=== PATIENT | female | born 1975 | race Hispanic/Latino ===

== ENCOUNTER 2016-12-16 22:55 | Emergency (ER) | payer MEDICAID, OTHER ==
[~2016-12-16] VITALS: Ht 167.6 cm; Wt 81.8 kg
[~2016-12-16 22:55] MED LIST: ACET50TA PO; AMBI12.52 PO; GLUC500T PO; IBUP80TA PO; SYNT50TA PO
[2016-12-16 22:56] VITALS: BP 108/71
[2016-12-17] MEDS ORDERED: NS 1,000 ML IV ONE (00:15)
[2016-12-17 00:57] LABS: BASO % 0.6 % (0.0-1.0); EOS % 0.3 % (0.0-3.0); LARGE UNSTAINED CELL # 0.1 K/mm3 (0.0-0.4); LARGE UNSTAINED CELL % 2.1 % (0.0-4.0); LYMPH # 0.4 K/mm3 (1.5-4.5); LYMPH % 10.1 % (24.0-44.0); MEAN CORPUSCULAR HEMOGLOBIN 18.3 pg (27.0-33.0); MEAN CORPUSCULAR HGB CONC 28.6 g/dl (32.0-36.5); MEAN CORPUSCULAR VOLUME 64.1 fl (80.0-96.0); MONO # 0.2 K/mm3 (0.0-0.8); MONO % 4.8 % (0.0-5.0); NEUTROPHILS # 3.2 K/mm3 (1.8-7.7); NEUTROPHILS % 82.1 % (36.0-66.0); PLATELET COUNT, AUTOMATED 204 k/mm3 (150-450); RED CELL DISTRIBUTION WIDTH 15.2 % (11.5-14.5); WHITE BLOOD COUNT 3.9 K/mm3 (4.0-10.0)
[2016-12-17 00:58] LABS: ADD MORPHOLOGY? YES
[2016-12-17 01:29] LABS: MICROCYTOSIS 3+
[2016-12-17 01:29] LABS: ALBUMIN 3.8 GM/DL (3.2-5.2); ALKALINE PHOSPHATASE 86 U/L (45-117); ALT/SGPT 61 U/L (12-78); ANION GAP 5 MEQ/L (8-16); AST/SGOT 19 U/L (15-37); BILIRUBIN,DIRECT 0.2 MG/DL (0.0-0.2); BILIRUBIN,TOTAL 0.7 MG/DL (0.2-1.0); BLOOD UREA NITROGEN 7 MG/DL (7-18); CALCIUM LEVEL 8.7 MG/DL (8.5-10.1); CARBON DIOXIDE LEVEL 27 MEQ/L (21-32); CHLORIDE LEVEL 106 MEQ/L (98-107); CREATININE FOR GFR 0.82 MG/DL (0.55-1.02); GLOMERULAR FILTRATION RATE > 60.0 (>60); GLUCOSE, FASTING 91 MG/DL (70-105); POTASSIUM SERUM 3.9 MEQ/L (3.5-5.1); SODIUM LEVEL 138 MEQ/L (136-145); T UPTAKE 33 % (30-39); THYROXINE (T4) 7.5 UG/DL (4.5-12.0)
[2016-12-17 01:30] LABS: HYPOCHROMASIA 2+; OVALOCYTES 1+
[2016-12-17 01:31] LABS: ANISOCYTOSIS 1+
[2016-12-17] MEDS ORDERED: KETOROLAC 30 MG/ML VIAL (J1885) IV ONE (01:45)
[2016-12-17] MEDS ORDERED: FE T325T PO (03:28)
== END 2016-12-17 03:37 | disposition home or self-care (01) ==
LOC: M ED 22:55
DX: D50.9 Iron deficiency anemia, unspecified (principal); M79.7 Fibromyalgia; E11.9 Type 2 diabetes mellitus without complications; E03.9 Hypothyroidism, unspecified; Z79.899 Other long term (current) drug therapy

== ENCOUNTER 2017-04-28 08:53 | Emergency (ER) | payer OTHER ==
[~2017-04-28] VITALS: Ht 170.2 cm; Wt 86.4 kg
[~2017-04-28 08:53] MED LIST changes: +FE T325T PO
[2017-04-28] MEDS ORDERED: VYVA70CA3 (09:07)
[2017-04-28] MEDS ORDERED: MORPHINE 4 MG/ML 1ML SYRINGE IV PRN (09:30)
[2017-04-28 09:32] LABS: BASO % 0.6 % (0.0-1.0); EOS # 0.1 10^3/uL (0.0-0.50); EOS % 1.9 % (0.0-3.0); IMMATURE GRANULOCYTE % 0.6 % (0-0); LYMPH # 0.8 10^3/uL (1.5-4.5); LYMPH % 16.5 % (24.0-44.0); MEAN CORPUSCULAR HEMOGLOBIN 18.5 pg (27.0-33.0); MEAN CORPUSCULAR HGB CONC 28.2 g/dl (32.0-36.5); MEAN CORPUSCULAR VOLUME 65.5 fl (80.0-96.0); MONO # 0.3 10^3/uL (0.0-0.8); MONO % 5.4 % (0.0-5.0); NEUTROPHILS # 3.5 10^3/uL (1.8-7.7); PLATELET COUNT, AUTOMATED 249 10^3/uL (150-450); RED CELL DISTRIBUTION WIDTH 16.5 % (11.5-14.5); WHITE BLOOD COUNT 4.6 10^3/uL (4.0-10.0)
[2017-04-28] MEDS ORDERED: ONDANSETRON 4MG/2ML VIAL (J2405) IV ONE (09:45)
[2017-04-28 09:54] LABS: ALBUMIN 3.7 GM/DL (3.2-5.2); ALKALINE PHOSPHATASE 68 U/L (45-117); ALT/SGPT 24 U/L (12-78); ANION GAP 6 MEQ/L (8-16); AST/SGOT 20 U/L (7-37); BILIRUBIN,DIRECT 0.2 MG/DL (0.0-0.2); BILIRUBIN,TOTAL 0.6 MG/DL (0.2-1.0); BLOOD UREA NITROGEN 7 MG/DL (7-18); CALCIUM LEVEL 8.9 MG/DL (8.5-10.1); CARBON DIOXIDE LEVEL 27 MEQ/L (21-32); CHLORIDE LEVEL 106 MEQ/L (98-107); CREATININE FOR GFR 0.66 MG/DL (0.55-1.02); GLOMERULAR FILTRATION RATE > 60.0 (>58); GLUCOSE, FASTING 96 MG/DL (70-105); POTASSIUM SERUM 3.9 MEQ/L (3.5-5.1); SODIUM LEVEL 139 MEQ/L (136-145); TOTAL PROTEIN 7.8 GM/DL (6.4-8.2)
[2017-04-28] MEDS ORDERED: KETOROLAC 30 MG/ML VIAL (J1885) IV ONE (11:30)
[2017-04-28] MEDS ORDERED: VALI5TAB PO (11:34)
[2017-04-28 12:08] VITALS: BP 106/59
== END 2017-04-28 12:15 | disposition home or self-care (01) ==
LOC: M ED 08:53 → EDBD 08:53 → M ED 12:15
DX: M54.9 Dorsalgia, unspecified (principal); M79.1 Myalgia; G89.29 Other chronic pain; E07.9 Disorder of thyroid, unspecified; D64.9 Anemia, unspecified; Z79.84 Long term (current) use of oral hypoglycemic drugs; Z79.899 Other long term (current) drug therapy
CPT/HCPCS: 80048; 80076; 83690; 85025; 93041; 96374; 96375; 99284; J1885; J2405; J3360

== ENCOUNTER 2017-08-14 09:24 | Emergency (ER) | payer OTHER, SELFPAY ==
[2017-08-14] MEDS: KETOROLAC 30 MG/ML VIAL (J1885) IV ×2 (09:54)
[2017-08-14] MEDS: MORPHINE 4 MG/ML 1ML VIAL (J2270) IV (09:55)
[2017-08-14] MEDS: MORPHINE 4 MG/ML 1ML VIAL/SYRINGE (J2270) IV (09:55)
[2017-08-14] MEDS: CYCLOBENZAPRINE 5MG TABLET PO ×2 (12:08)
[2017-08-14] MEDS: PERCOCET 5MG/325MG TAB PO ×2 (12:09)
== END 2017-08-14 14:13 | disposition home or self-care (01) ==
LOC: M ED 09:24
DX: M54.9 Dorsalgia, unspecified (principal); G89.29 Other chronic pain; E03.9 Hypothyroidism, unspecified; E28.2 Polycystic ovarian syndrome; Z79.890 Hormone replacement therapy; Z79.84 Long term (current) use of oral hypoglycemic drugs; Z79.899 Other long term (current) drug therapy; Z87.39 Personal history of other diseases of the musculoskeletal system and connective tissue; Z98.890 Other specified postprocedural states
CPT/HCPCS: J2270

== ENCOUNTER → 2018-05-09 | Outpatient (CLI) | payer OTHER | LOC: M RAD 09:48 | DX: Z36.89 Encounter for other specified antenatal screening (principal); Z3A.08 8 weeks gestation of pregnancy; D25.9 Leiomyoma of uterus, unspecified; O34.11 Maternal care for benign tumor of corpus uteri, first trimester | CPT/HCPCS: 76801 ==

== ENCOUNTER 2018-05-30 18:13 | Emergency (ER) | payer OTHER ==
[~2018-05-30] VITALS: Ht 167.6 cm; Wt 90.9 kg
[~2018-05-30 18:13] MED LIST changes: +CYCL5TAB PO; +PERC5TAB12 PO; +TRAM50TA2 PO; +VALI5TAB PO; +VYVA70CA3
[2018-05-30] MEDS ORDERED: NS 1,000 ML IV ONE (19:00)
[2018-05-30 19:43] LABS: BASO % 0.5 % (0.0-1.0); EOS # 0.2 10^3/uL (0.0-0.50); HEMATOCRIT 39.5 % (36.0-47.0); HEMOGLOBIN 12.4 g/dl (12.0-15.5); LYMPH # 1.6 10^3/uL (1.5-4.5); LYMPH % 20.7 % (24.0-44.0); MEAN CORPUSCULAR HEMOGLOBIN 23.8 pg (27.0-33.0); MEAN CORPUSCULAR HGB CONC 31.4 g/dl (32.0-36.5); MEAN CORPUSCULAR VOLUME 75.7 fl (80.0-96.0); MONO # 0.5 10^3/uL (0.0-0.8); MONO % 6.4 % (0.0-5.0); NEUTROPHILS # 5.4 10^3/uL (1.8-7.7); PLATELET COUNT, AUTOMATED 207 10^3/uL (150-450); RED BLOOD COUNT 5.22 10^6/uL (4.00-5.40); WHITE BLOOD COUNT 7.8 10^3/uL (4.0-10.0)
--- NOTE | 2018-05-30 20:02 | REPVR ---
EXAM: US First Trimester, Transabdominal EXAM DATE/TIME: 05/30/2018 7:29 PM CLINICAL HISTORY: 43 years old, female; Pain; complicated by abdominal or pelvic pain; Lower; First trimester; Gestational age or lmp: 12; ; Additional info: Abdominal cramping HX miscarriage TECHNIQUE: Real-time transabdominal obstetrical ultrasound of the maternal pelvis and a first trimester , less than 14 weeks 0 days, with image documentation. COMPARISON: No relevant prior studies available. FINDINGS: GESTATION: Gestation: Single gestational sac. Single fetus within the gestational sac. Heart rate: heart rate 153 beats per minute. Placenta: Unremarkable. Posterior. No subchorionic bleed. Amniotic fluid: Amniotic and chorionic fluid are normal for gestational age. BIOMETRY: Estimated gestational age: Gestational age based on crown-rump length is 12 weeks 1 day. LMP of 04/06/2018 consistent with a gestational age of 7 weeks 5 days. [place]-Rump length: [place]-rump length measures 5.6 cm. MATERNAL: Uterus: Unremarkable. Cervix: Unremarkable. Right adnexa: Unremarkable. Left adnexa: Unremarkable. Intraperitoneal: No intraperitoneal free fluid. IMPRESSION: Single fetus of crown-rump length 5.6 cm consistent with a gestational age of 12 weeks 1 day. Detailed anatomic survey can be performed at the 19-20 range if clinically desired. Electronically signed by: London Rodriguez On 05/30/2018 20:01:49 PM
[2018-05-30 20:24] LABS: BLOOD UREA NITROGEN 6 MG/DL (7-18); CALCIUM LEVEL 8.9 MG/DL (8.5-10.1); CARBON DIOXIDE LEVEL 24 MEQ/L (21-32); CHLORIDE LEVEL 105 MEQ/L (98-107); CREATININE FOR GFR 0.54 MG/DL (0.55-1.30); GLOMERULAR FILTRATION RATE > 60.0 (>58); GLUCOSE, FASTING 85 MG/DL (70-100); HCG, SERUM QUANTITATIVE 76708 MIU/ML; POTASSIUM SERUM 3.8 MEQ/L (3.5-5.1); SODIUM LEVEL 138 MEQ/L (136-145)
[2018-05-30 21:26] VITALS: BP 116/70
== END 2018-05-30 21:28 | disposition home or self-care (01) ==
LOC: M ED 18:13
DX: O26.891 Other specified pregnancy related conditions, first trimester (principal); R10.2 Pelvic and perineal pain; Z3A.12 12 weeks gestation of pregnancy; O99.281 Endocrine, nutritional and metabolic diseases complicating pregnancy, first trimester; E03.9 Hypothyroidism, unspecified; M79.7 Fibromyalgia; E28.2 Polycystic ovarian syndrome; O99.841 Bariatric surgery status complicating pregnancy, first trimester; Z79.899 Other long term (current) drug therapy; Z79.890 Hormone replacement therapy

== ENCOUNTER 2018-06-12 17:41 | Emergency (ER) | payer OTHER ==
[~2018-06-12] VITALS: Ht 167.6 cm; Wt 90.9 kg
[2018-06-12] MEDS ORDERED: NS 1,000 ML IV ONE (18:00)
[2018-06-12 18:25] LABS: BASO % 0.4 % (0.0-1.0); EOS # 0.1 10^3/uL (0.0-0.50); EOS % 1.5 % (0.0-3.0); HEMATOCRIT 36.6 % (36.0-47.0); HEMOGLOBIN 11.6 g/dl (12.0-15.5); LYMPH # 1.4 10^3/uL (1.5-4.5); LYMPH % 18.1 % (24.0-44.0); MEAN CORPUSCULAR HEMOGLOBIN 24.2 pg (27.0-33.0); MEAN CORPUSCULAR HGB CONC 31.7 g/dl (32.0-36.5); MEAN CORPUSCULAR VOLUME 76.3 fl (80.0-96.0); MONO # 0.5 10^3/uL (0.0-0.8); NEUTROPHILS # 5.4 10^3/uL (1.8-7.7); NEUTROPHILS % 72.1 % (36.0-66.0); PLATELET COUNT, AUTOMATED 184 10^3/uL (150-450); WHITE BLOOD COUNT 7.5 10^3/uL (4.0-10.0)
[2018-06-12 18:48] LABS: ALBUMIN 2.9 GM/DL (3.2-5.2); ALT/SGPT 15 U/L (12-78); AMYLASE 62 U/L (25-115); BILIRUBIN,DIRECT 0.1 MG/DL (0.0-0.2); BILIRUBIN,TOTAL 0.3 MG/DL (0.2-1.0); BLOOD UREA NITROGEN 5 MG/DL (7-18); CALCIUM LEVEL 8.1 MG/DL (8.5-10.1); CARBON DIOXIDE LEVEL 21 MEQ/L (21-32); CHLORIDE LEVEL 107 MEQ/L (98-107); CK-MB VALUE MASS < 1.0 NG/ML (<3.6); CPK CREATINE PHOSPHOKINASE 83 U/L (26-192); CREATININE FOR GFR 0.53 MG/DL (0.55-1.30); ETHYL ALCOHOL (ETHANOL) 0.003 % (0.000-0.010); GLOMERULAR FILTRATION RATE > 60.0 (>58); GLUCOSE, FASTING 79 MG/DL (70-100); LIPASE 135 U/L (73-393); POTASSIUM SERUM 3.5 MEQ/L (3.5-5.1); SODIUM LEVEL 138 MEQ/L (136-145); TOTAL PROTEIN 6.4 GM/DL (6.4-8.2); TROPONIN I < 0.02 NG/ML (< 0.10)
[2018-06-12 18:51] LABS: INR 0.97; PROTHROMBIN TIME 12.9 SECONDS (12.1-14.4)
[2018-06-12 18:52] LABS: PARTIAL THROMBOPLASTIN TIME 26.6 SECONDS (25.4-37.6)
[2018-06-12] MEDS ORDERED: ISOVUE-370 76% 100ML VIAL (Q9967) As Ordered ONE (19:27)
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
[2018-06-12 21:06] VITALS: BP 117/64
[2018-06-12 21:12] LABS: AMPHETAMINES LEVEL URINE NEGATIVE (NEGATIVE); BARBITURATES URINE NEGATIVE (NEGATIVE); BENZODIAZEPINES URINE NEGATIVE (NEGATIVE); CANNABINOIDS URINE NEGATIVE (NEGATIVE); COCAINE METABOLITE URINE NEGATIVE (NEGATIVE); METHADONE URINE NEGATIVE (NEGATIVE); OPIATES URINE NEGATIVE (NEGATIVE); PHENCYCLIDINE URINE NEGATIVE (NEGATIVE)
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
--- NOTE | 2018-06-13 13:25 | ECGEPIP ---
Stationary ECG Study [facility] - ED Test Date: 2018-06-12 Pat Name: MENDY MANNING Department: Room: - Gender: F Inspector Handbag Frames: JUSTA : 1975 Requested By: Wang Curiel Order Number: [id number] Reading MD: Reymundo Aguiar Measurements Intervals [place] Rate: 83 P: 48 SD: 146 QRS: 54 QRSD: 103 T: 18 QT: 384 QTc: 454 Interpretive Statements SINUS RHYTHM NONSPECIFIC T-WAVE ABNORMALITY NO PRIORS FOR COMPARISON Electronically Signed On 06-13-2018 13:24:41 EST by Reymundo Aguiar
== END 2018-06-12 21:40 | disposition home or self-care (01) ==
LOC: M ED 17:41
DX: O9A.211 Injury, poisoning and certain other consequences of external causes complicating pregnancy, first trimester (principal); S30.1XXA Contusion of abdominal wall, initial encounter; V43.52XA Car driver injured in collision with other type car in traffic accident, initial encounter; Y92.410 Unspecified street and highway as the place of occurrence of the external cause; Z3A.13 13 weeks gestation of pregnancy; O99.341 Other mental disorders complicating pregnancy, first trimester; O99.281 Endocrine, nutritional and metabolic diseases complicating pregnancy, first trimester; E07.9 Disorder of thyroid, unspecified; Z79.899 Other long term (current) drug therapy; Z79.84 Long term (current) use of oral hypoglycemic drugs
CPT/HCPCS: 36415; 70450; 71260; 72125; 73060; 73090; 73130; 73552; 73590; 74177; 76705; 76801; 80048; 80076; 80307; 81001; 82150; 82550; 82553; 83605; 83690; 84484; 85025; 85460; 85610; 85730; 86850; 86900; 86901; 93005; 93041; 94760; 99285; G0480; Q9967

== ENCOUNTER 2018-06-21 13:16 | Emergency (ER) | payer OTHER ==
[~2018-06-21] VITALS: Ht 167.6 cm; Wt 90.9 kg
[2018-06-21] MEDS ORDERED: PRENCHW PO (13:24)
[2018-06-21] MEDS ORDERED: IRON325T7 PO (13:24)
[2018-06-21] MEDS ORDERED: diphenhydrAMINE INJ 50MG/ML VIAL (J1200) IV STA (14:28)
[2018-06-21] MEDS ORDERED: METOCLOPRAMIDE INJ 10MG/2ML VIAL (J2765) IV ONE (14:30)
[2018-06-21] MEDS ORDERED: NS 1,000 ML IV ONE (14:30)
[2018-06-21] MEDS ORDERED: REGL10TA6 PO (14:33)
[2018-06-21] MEDS ORDERED: BENA25CA4 PO (14:33)
[2018-06-21] MEDS ORDERED: ACETAMINOPHEN 325 MG TAB PO ONE (14:45)
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
[2018-06-21 16:05] VITALS: BP 94/55
== END 2018-06-21 16:07 | disposition home or self-care (01) ==
LOC: M ED 13:16
DX: O99.89 Other specified diseases and conditions complicating pregnancy, childbirth and the puerperium (principal); R51 Headache; R11.2 Nausea with vomiting, unspecified; S09.90XA Unspecified injury of head, initial encounter; O99.712 Diseases of the skin and subcutaneous tissue complicating pregnancy, second trimester; V43.52XA Car driver injured in collision with other type car in traffic accident, initial encounter; Y92.9 Unspecified place or not applicable; Y99.9 Unspecified external cause status; O99.842 Bariatric surgery status complicating pregnancy, second trimester; O99.282 Endocrine, nutritional and metabolic diseases complicating pregnancy, second trimester; M79.7 Fibromyalgia; Z3A.14 14 weeks gestation of pregnancy; O09.512 Supervision of elderly primigravida, second trimester; Z79.899 Other long term (current) drug therapy
CPT/HCPCS: 70450; 96361; 96374; 96375; 99284; J1200; J2765

== ENCOUNTER 2018-11-30 16:51 | Inpatient (IN) | payer OTHER ==
[~2018-11-30] VITALS: Ht 167.6 cm; Wt 106.0 kg
[~2018-11-30 16:51] MED LIST changes: -ACET50TA PO; +BENA25CA4 PO; +FERR325T82 PO; +MAPA500T17 PO; +PRENCHW PO; +REGL10TA6 PO
[2018-11-30 17:17] VITALS: BP 101/71
[2018-11-30 17:58] LABS: HEMOGLOBIN 8.7 g/dl (12.0-15.5); MEAN CORPUSCULAR HEMOGLOBIN 21.6 pg (27.0-33.0); MEAN CORPUSCULAR VOLUME 74.6 fl (80.0-96.0); PLATELET COUNT, AUTOMATED 125 10^3/uL (150-450); RED BLOOD COUNT 4.02 10^6/uL (4.00-5.40); WHITE BLOOD COUNT 5.4 10^3/uL (4.0-10.0)
[2018-11-30] MEDS ORDERED: miSOPROStol 50 MCG 1/2 TAB (S0191) PO ONE (18:30)
[2018-11-30] MEDS ORDERED: LR 1,000 ML IV ONE (18:30)
[2018-11-30 19:09] VITALS: BP 93/53
[2018-11-30] MEDS ORDERED: metFORMIN (GLUCOPHAGE) 1000 MG TABLET PO ONE (20:00)
[2018-11-30] MEDS ORDERED: TERBUTALINE SULFATE 1 MG/ML VIAL (J3105) As Ordered ONE (20:28)
[2018-11-30] MEDS ORDERED: TERBUTALINE SULFATE 1 MG/ML VIAL (J3105) SC ONE (20:30)
[2018-11-30 20:33] VITALS: BP 110/62
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
[2018-11-30 22:32] VITALS: BP 109/56
[2018-12-01] MEDS ORDERED: hydrOXYzine 10 MG TAB PO ONE (00:15)
[2018-12-01 00:16] VITALS: BP 107/71
[2018-12-01 02:40] VITALS: BP 127/60
[2018-12-01 05:19] VITALS: BP 112/71
[2018-12-01 06:40] VITALS: BP 132/72
--- NOTE | 2018-12-01 15:01 | IPN ---
DATE: 11/30/2018, 2000 hours. I was called regarding this lady's prolonged deceleration after having one oral Cytotec. The duration of the deceleration lasted approximately 20-30 seconds despite not having any contractions but minimal type uterine irritability. The patient was given terbutaline 0.25 mg. The patient was hydrated with an IV bolus and positional change. The baby's heart rate came back and recovered nicely. She did have moderate variability with normal baseline. No contractions and no decelerations were noted. We continued to monitor for over a period of an hour to see if there was any change and though despite she was having some pelvic pressure, she did not have subsequent event. Therefore, we waited the prescribed 4 hours and the patient did not have any further decelerations. Overnight, the patient was monitored intermittently every 2 hours. She was mobilized and never had any recurrence of deceleration.
--- NOTE | 2018-12-01 15:01 | DSES ---
DATE OF ADMISSION: 11/30/2018 DATE OF DISCHARGE: 12/01/2018 This lady was admitted at 37 and 6 weeks of gestation for induction of labor. She is a 43-year-old, 5, para 1. Her issues are that she has anemia, body mass index (BMI) of 32, hypothyroid, AMA, polycystic ovarian syndrome (PCOS), and insomnia. She had been monitored carefully over the course of her care and because of her AMA status, anemia and BMI, she was brought for induction of labor. She had a Cytotec placed because the presenting part was quite high on ultrasound documents to be vertex, but the cervix was posterior, very high, not dilated and after 1 hour of Cytotec orally she had one spontaneous deceleration with no contractions. She was re-hydrated, repositioned and terbutaline times one dose was given and we had no other episodes of the same. Over the next 12 hours, we monitored her with no Pitocin, no Cytotec and the baby had a category 1 strip throughout. This morning we offered her the option of doing a contraction stress test and if positive would end up with a section, if negative we could continue on with induction of labor. The patient was uncomfortable doing a contraction stress test that may lead to section because she does not want to have a section. She preferred to go home. In lieu of that, the option of available to her was to have a biophysical profile (BPP) today and nonstress test. Specific instructions are kick chart minimum of 10 movements 24 hours, six movements 2 hours, ruptured membranes, contractions immediately return, have available 24-hour person to her. She is not to work and she is to have intensive monitoring in our clinic two times per week with an non-stress test (NST) and amniotic fluid index (DAGMAR) and BPP. The compromise was that at 39 weeks, which will be 1 week from today, that she will come in for induction of labor failing having spontaneous labor. At any time during the interval monitoring, there is a suggestion of oligohydramnios and nonreassuring heart, NST of category 2, she will be immediately placed for observation in the unit and progress onto delivery. I explained to the patient with her and father present that there is an increased risk of in AMA patient's especially the closer to 40 weeks that they get and that is the indication that we brought her in at 37 and 6 for induction of labor. The patient expressed understanding of same, still offered the contraction stress test, still declined that. She said she will be compliant in that she will not work, she will monitor her kick chart, she will come in for her monitoring two times per week and if there is any indication that there is stress that she will be immediately admitted for induction of labor as needed. On discharge, the patient's blood pressure was 112/71, respirations were 18, pulse was 96 and she was afebrile at 98.7. We did a biophysical profile again. The vertex is presenting but it is quite high and possibly almost floating activity is noted. She had a four quadrant. DAGMAR of 11.06 with the smallest pocket being 2.53. The limb movement was noted. There was spontaneous respirations and cardiac activity was regular. In summary, she had a biophysical profile of 8/8 with an NST of category 1 being 2/2 giving her total of 10/10. The patient was discharged to followup on Monday for monitoring. Again, all questions were answered. We spent 40 minutes with this patient including examination. edited: 12/03/2018 [id number] michael LANDRUM
== END 2018-12-01 07:00 | disposition home or self-care (01) | DRG 833 ==
LOC: M LDI 16:51
PROVIDERS: ADMIT Obstetrics & Gynecology; ATTEND Obstetrics & Gynecology
PROC: 3E0P7GC Introduction of Other Therapeutic Substance into Female Reproductive, Via Natural or Artificial Opening (ICD-10-PCS; principal; 2018-11-30)
DX: O99.013 Anemia complicating pregnancy, third trimester (principal); O99.283 Endocrine, nutritional and metabolic diseases complicating pregnancy, third trimester; E03.9 Hypothyroidism, unspecified; D64.9 Anemia, unspecified; E28.2 Polycystic ovarian syndrome; O99.843 Bariatric surgery status complicating pregnancy, third trimester; Z3A.37 37 weeks gestation of pregnancy; O61.0 Failed medical induction of labor

== ENCOUNTER 2018-12-08 06:55 | Inpatient (IN) | payer OTHER ==
[2018-12-08] VITALS (19 sets, daily range): BP systolic 79–141; BP diastolic 50–81
[~2018-12-08] VITALS: Ht 167.6 cm; Wt 107.2 kg
[2018-12-08] MEDS ORDERED: LR 1,000 ML IV SCH ×2 (09:15→18:10)
[2018-12-08 09:18] LABS: HEMATOCRIT 31.2 % (36.0-47.0); HEMOGLOBIN 9.1 g/dl (12.0-15.5); MEAN CORPUSCULAR HEMOGLOBIN 21.6 pg (27.0-33.0); MEAN CORPUSCULAR HGB CONC 29.2 g/dl (32.0-36.5); MEAN CORPUSCULAR VOLUME 73.9 fl (80.0-96.0); PLATELET COUNT, AUTOMATED 130 10^3/uL (150-450); RED BLOOD COUNT 4.22 10^6/uL (4.00-5.40); WHITE BLOOD COUNT 6.2 10^3/uL (4.0-10.0)
[2018-12-08] MEDS: LR 1,000 ML IV SCH ×4 (09:58→23:00)
[2018-12-08] MEDS: miSOPROStol 50 MCG 1/2 TAB (S0191) PO PRN ×2 (10:05→14:07)
[2018-12-08] MEDS ORDERED: OXYTOCIN 30 UNITS IN 0.9% NaCl 500ML IV BAG (J2590) As Ordered ONE (18:09)
[2018-12-08] MEDS ORDERED: OXYTOCIN DRIP 30 UNITS in APPROPRIATE DILUENT 1 EA IV SCH (18:15)
--- NOTE | 2018-12-08 20:43 | HPEPDOC ---
Obstetrical History & Physical General Date of Admission Dec 08, 2018 at 06:55 History of Present Illness Pt seen at ~0900 this AM, late entry. 43 y/o at 39+0 for scheduled IOL. No LOF/VB/reg ctx's. Irreg ctx's only. Pos FM. Preg c/b: Hypothyroidism, on synthroid Obesity ADHD no meds AMA PCOS on metformin Anemia Chief Complaint: Induction of labor Care Care: Good Care Dating Final EDC by: 1st trimester (US) Past Medical History Past Obstetrical History : Type of Delivery: Spontaneous Vaginal Del. (x1 in 2013, 7 lb 8 oz, no complications) REPAIR TECH History: Spontaneous (x3, 2 SAB's, 1 ectopic (MTX and D&C)) Past Medical History Medical History ADHD, PCOS, hypothyroid, constipation, migraines Surgical History: Other (gastric sleeve 2007, things underarms abdominoplasty afterwards, D&C X1) Family History Significant Family History: No pertinent family hx Social History Marital Status: Family situation: Spouse/partner home Psychosocial History: No pertinent psych hx * Smoker: non-smoker Alcohol: Denies Drugs: denies Abuse Violence Screening Have you been hit/kicked/slapp: No Have you been sexually assault: No Imunizations Tdap status: declined Influenza Status: declined Allergies Coded Allergies: No Known Allergies (Unverified , 12/08/18) Medications Scheduled Levothyroxine Sodium (Synthroid) 50 Mcg Tab, 50 MCG PO DAILY Metformin Hcl (Glucophage (Metformin)) 250 Mg Halftab, 1,000 MG PO QHS Pnv No.118/Iron Fumarate/FA ( 19 Chewable Tablet) 1 Chw Chw, 1 TAB PO DAILY Physical Examination Physical Examination GENERAL: Alert and oriented times three. Obese ABDOMEN: Gravid and non-tender to touch. Significant abdominoplasty scar with skin edema present, higher risk for skin infection FETUS/Cx: high/anterior/tight 1 cm, TAUS done due to confirm presentation-vtx EXTREMITIES: No edema. Vital Signs/I&O Vital Signs Date Time Temp Pulse Resp B/P (MAP) Pulse Ox O2 Delivery O2 Flow Rate FiO2 12/08/18 07:13 131 116/73 (87) 12/08/18 07:11 97.1 16 Laboratory Data 24H LABS Laboratory Tests 2 12/08/18 06:59: Serology Scanned Report Hepatitis B Testing 12/08/18 09:08: Nucleated Red Blood Cells % (auto) 0.0 CBC/BMP Laboratory Tests 12/08/18 09:08 Red Blood Count 4.22, Mean Corpuscular Volume 73.9 L, Mean Corpuscular Hemoglobin 21.6 L, Mean Corpuscular Hemoglobin Concent 29.2 L, Red Cell Distribution Width 18.6 H Urine Culture: Contaminated Pertinent Laboratoy Data Blood Type: O+ RBC Antibody Screen: Negative HIV: Negative Hepatitis B: Negative Hepatitis C: Unknown Rapid Plasma Reagin: Nonreactive Rubella: Immune Varicella: Immune Chlamydia/Gonorrhea: Negative Group B Streptococcus: Negative Quad Screen Test: Declined Cystic Fibrosis: Negative Glucose Tolerance Test: 79 Anatomy Ultrasound Placenta Location: Posterior Normal Anatomy: Yes Placenta Previa: No Assessment Variability: Moderate Accelerations: Positive Decelerations: None Tocometer Contractions: Yes Frequency: irregular Assessment/Plan Assessment AMA at 39+0. Multiple other minor issues. Not a great candidate for due to prior abdominoplasty, this communicated to pt. Plan Admit and orient Care Services Manager and consent Diet: clears Group B Streptococcus (GBS) neg Labs and intravenous (IV) per unit protocol Counseled on Pitocin and induction of labor (IOL) Plan on starting with PO cytotec Anticipate normal spontaneous delivery () C-S as appropriate SESSIONS,UBALDO Macias MD Dec 08, 2018 20:43
--- NOTE | 2018-12-08 20:50 | IPNPDOC ---
Text Note Date of Service The patient was seen on 12/08/18. NOTE Late note, Pt seen at 1800 PO Cytotec x2 now at 1000, 1400 FHT reassuring, broken at times, also some difficulty with toco Cx 3/75/-2/ant/vtx well applied Start pitocin Sessions VS,Surjit, I+O VS, Surjit I+O Laboratory Tests 12/08/18 09:08 Red Blood Count 4.22, Mean Corpuscular Volume 73.9 L, Mean Corpuscular Hemoglobin 21.6 L, Mean Corpuscular Hemoglobin Concent 29.2 L, Red Cell Distribution Width 18.6 H Vital Signs Date Time Temp Pulse Resp B/P (MAP) Pulse Ox O2 Delivery O2 Flow Rate FiO2 12/08/18 07:13 131 116/73 (87) 12/08/18 07:11 97.1 16 SESSIONS,UBALDO Macias MD Dec 08, 2018 20:50
--- NOTE | 2018-12-08 21:08 | IPNPDOC ---
Text Note Date of Service The patient was seen on 12/08/18. NOTE On only 2 mu/min pitocin had a run of persistent lates, this fixed by the RN a ppropriately, has been off for >1 hr Cx 4/80/-1/very anterior/AROM done with clear fluid, IUPC placed Watch closely, epidural anytime is OK Restart pitocin soon Sessions VS,Surjit, I+O VSSurjit I+O Laboratory Tests 12/08/18 09:08 Red Blood Count 4.22, Mean Corpuscular Volume 73.9 L, Mean Corpuscular Hemoglobin 21.6 L, Mean Corpuscular Hemoglobin Concent 29.2 L, Red Cell Distribution Width 18.6 H Vital Signs Date Time Temp Pulse Resp B/P (MAP) Pulse Ox O2 Delivery O2 Flow Rate FiO2 12/08/18 07:13 131 116/73 (87) 12/08/18 07:11 97.1 16 SESSIONS,UBALDO Macias MD Dec 08, 2018 21:08
[2018-12-08] MEDS ORDERED: FENTANYL 2MCG/ML ROPIVACAINE 0.2% IN 0.9% NACL 100ML IVBAG As Ordered ONE (22:38)
[2018-12-08] MEDS ORDERED: ePHEDrine SULFATE 25 MG/5 ML(5MG/ML) SYRINGE As Ordered ONE (23:34)
[2018-12-09] VITALS (17 sets, daily range): BP systolic 90–128; BP diastolic 54–74
[2018-12-09] MEDS: LR 1,000 ML IV SCH (01:24)
[2018-12-09] MEDS ORDERED: EPIDURAL COMMENT XX SCH (01:30)
[2018-12-09] MEDS ORDERED: ONDANSETRON 4MG/2ML VIAL (J2405) IV PRN (01:30)
[2018-12-09] MEDS ORDERED: ePHEDrine SULFATE 25 MG/5 ML(5MG/ML) SYRINGE IV PRN (01:30)
[2018-12-09] MEDS ORDERED: NALOXONE INJ 0.4 MG/1 ML VIAL (J2310) IV PRN (01:30)
[2018-12-09] MEDS ORDERED: diphenhydrAMINE INJ 50MG/ML VIAL (J1200) IV PRN (01:30)
[2018-12-09] MEDS ORDERED: EPIDURAL/PCA KEYS XX PRN (01:30)
[2018-12-09] MEDS ORDERED: LACTATED RINGER'S 1000 ML IV PRN (01:30)
[2018-12-09] MEDS ORDERED: REFRIGERATOR IV KEYS XX PRN (01:30)
[2018-12-09] MEDS ORDERED: FENTANYL/ROPIVACAINE/NACL BAG 100 ML EPIDURAL SCH (01:30)
--- NOTE | 2018-12-09 02:46 | IPNPDOC ---
Text Note Date of Service The patient was seen on 12/09/18. NOTE Has been making good progress, received her epidural, some late edcels thereaf juanito Lost her IUPC but cont'd worsening pressure, now C/C/+2 Start pushing Sessions VS,Surjit, I+O VS, Surjit I+O Laboratory Tests 12/08/18 09:08 Red Blood Count 4.22, Mean Corpuscular Volume 73.9 L, Mean Corpuscular Hemoglobin 21.6 L, Mean Corpuscular Hemoglobin Concent 29.2 L, Red Cell Distribution Width 18.6 H Vital Signs Date Time Temp Pulse Resp B/P (MAP) Pulse Ox O2 Delivery O2 Flow Rate FiO2 12/08/18 07:13 131 116/73 (87) 12/08/18 07:11 97.1 16 I&O- Last 24 Hours up to 6 AM 12/09/18 06:00 Intake Total 3000 ml Output Total 1000 ml Balance 2000 ml SESSIONS,UBALDO Macias MD Dec 09, 2018 02:46
[2018-12-09] MEDS ORDERED: OXYTOCIN DRIP 30 UNITS in APPROPRIATE DILUENT 1 EA IV SCH (03:44)
[2018-12-09] MEDS ORDERED: DIBUCAINE 1% OINTMENT 30GM TOP PRN (03:45)
[2018-12-09] MEDS ORDERED: METOCLOPRAMIDE INJ 10MG/2ML VIAL (J2765) IV PRN (03:45)
[2018-12-09] MEDS ORDERED: ACETAMINOPHEN TAB 650MG DOSE (2X325MG) PO PRN (03:45)
[2018-12-09] MEDS ORDERED: MEASLES,MUMPS,RUBELLA VACCINE INJ (MMR-II) (90707) SC SCH (03:45)
[2018-12-09] MEDS ORDERED: RHOGAM 300 MCG (1500 IU) INJ (J2790) IM SCH (03:45)
--- NOTE | 2018-12-09 03:55 | DNPDOC ---
[facility] Delivery Note Delivery Note DATE OF DELIVERY: [id number] PREDELIVERY DIAGNOSIS: 39 1/7 weeks' gestation and labor. POST DELIVERY DIAGNOSIS: Delivered. PROCEDURE: Spontaneous vaginal delivery BODY PRESSER: Dr. Cardona ANESTHESIA: epidural ESTIMATED BLOOD LOSS: 200 mL. FINDINGS: 9 pound 0 ounce male infant, Score 9/9 DELIVERY SUMMARY: Great effort, no delay of the vtx or ant/post shoulders. Vigorous to abd. Cord C/C by FOB. Cord blood. Placenta intact, fundus firm, pit going 999. 1st degr ML lac repaired in standard fashion with 3-0 vicryl. Good cosmesis/hemostasis. Sessions MD CARDONA,UBALDO Macias MD Dec 09, 2018 03:55
[2018-12-09] MEDS: PRENATAL VITAMINS CHEWABLE TABLET PO SCH ×2 (08:38→08:53)
[2018-12-09] MEDS: LEVOTHYROXINE 50MCG TABLET (0.05MG) PO SCH (08:38)
[2018-12-09] MEDS: DOCUSATE SODIUM 100 MG CAP PO SCH ×2 (08:39→20:40)
[2018-12-09] MEDS: IBUPROFEN 800 MG TAB PO PRN (11:25)
[2018-12-09] MEDS ORDERED: metFORMIN (GLUCOPHAGE) 1000 MG TABLET PO SCH (18:00)
[2018-12-09] MEDS ORDERED: zolPIDEM TARTRATE 5 MG TAB PO SCH ×3 (21:00→22:00)
[2018-12-10] MEDS: LEVOTHYROXINE 50MCG TABLET (0.05MG) PO SCH ×2 (05:33→08:42)
[2018-12-10] MEDS: IBUPROFEN 800 MG TAB PO PRN (05:34)
[2018-12-10 06:06] VITALS: BP 149/72
--- NOTE | 2018-12-10 07:12 | IPNPDOC ---
Text Note Date of Service The patient was seen on 12/10/18. NOTE PPD1 States feeling well, pain controlled with prescribed meds. Baby bonding and feeding well but in NICU for blood sugar issues. No heavy VB. Lochia slowing. Ambulatory. Tolerating PO without issues. Voiding spont. No CP/LP/SOB. VSSAF NAD A&O LE no C/C/E Ut at U-1, firm a/p: Doing well. Cont routine care. D/C today to boarding. Sessions MD PLASCENCIA,Surjit, I+O VSSurjit I+O Vital Signs Date Time Temp Pulse Resp B/P (MAP) Pulse Ox O2 Delivery O2 Flow Rate FiO2 12/10/18 06:06 97.3 100 18 149/72 (97) I&O- Last 24 Hours up to 6 AM 12/10/18 06:00 Output Total 800 ml Balance -800 ml SESSIONS,UBALDO Macias MD Dec 10, 2018 07:11
--- NOTE | 2018-12-10 07:15 | DS.PDOC ---
Discharge Summary General Date of Admission Dec 08, 2018 at 06:55 Date of Discharge [id number] Discharge Summary ADMITTING DIAGNOSES: IOL for AMA and multiple other issues DISCHARGE DIAGNOSES: Same, HOSPITAL COURSE: Admitted and delivery uncomplicated, . course uncomplicated. DISCHARGE MEDICATIONS: Motrin, Lanolin, Nor DISCHARGE INSTRUCTIONS: Nothing in the vagina for 6 weeks. F/U in OBGYN clinic in 6-8 weeks. Sessions Vital Signs/I&Os Vital Signs Date Time Temp Pulse Resp B/P (MAP) Pulse Ox O2 Delivery O2 Flow Rate FiO2 12/10/18 06:06 97.3 100 18 149/72 (97) I&O- Last 24 Hours up to 6 AM 12/10/18 06:00 Output Total 800 ml Balance -800 ml Discharge Medications Scheduled Levothyroxine Sodium (Synthroid) 50 Mcg Tab, 50 MCG PO DAILY, (Reported) Metformin Hcl (Glucophage (Metformin)) 250 Mg Halftab, 1,000 MG PO QHS, (Reported) Pnv No.118/Iron Fumarate/FA ( 19 Chewable Tablet) 1 Chw Chw, 1 TAB PO DAILY, (Reported) Allergies Coded Allergies: No Known Allergies (Unverified , 12/08/18) SESSIONS,UBALDO Macias MD Dec 10, 2018 07:15
[2018-12-10] MEDS ORDERED: ACET1TAB55 PO (07:16)
[2018-12-10] MEDS ORDERED: IBUP80TA PO (07:16)
[2018-12-10] MEDS ORDERED: AMBI5TAB PO (07:16)
[2018-12-10] MEDS: PRENATAL VITAMINS CHEWABLE TABLET PO SCH (08:42)
[2018-12-10] MEDS: DOCUSATE SODIUM 100 MG CAP PO SCH (09:00)
== END 2018-12-10 16:30 | disposition home or self-care (01) | DRG 807 ==
LOC: M LDI 06:55 → M OBS 12-09 06:21
PROVIDERS: ADMIT Obstetrics & Gynecology; ATTEND Obstetrics & Gynecology
PROC: 10E0XZZ Delivery of Products of Conception, External Approach (ICD-10-PCS; principal; 2018-12-09)
PROC: 0HQ9XZZ Repair Perineum Skin, External Approach (ICD-10-PCS; 2018-12-09)
DX: O99.214 Obesity complicating childbirth (principal); Z37.0 Single live birth; Z3A.39 39 weeks gestation of pregnancy; O70.0 First degree perineal laceration during delivery; O99.284 Endocrine, nutritional and metabolic diseases complicating childbirth; O99.844 Bariatric surgery status complicating childbirth; O99.02 Anemia complicating childbirth

== ENCOUNTER 2019-11-12 09:08 | Emergency (ER) | payer OTHER ==
[~2019-11-12] VITALS: Ht 167.6 cm; Wt 90.8 kg
[~2019-11-12 09:08] MED LIST changes: +ACET1TAB55 PO; +AMBI5TAB PO
[2019-11-12] MEDS ORDERED: VYVA70CA3 PO (09:14)
[2019-11-12 10:13] LABS: BASO % 0.8 % (0.0-1.0); EOS # 0.1 10^3/uL (0.0-0.5); EOS % 1.9 % (0.0-3.0); HEMOGLOBIN 8.9 g/dl (12.0-15.5); LYMPH # 0.6 10^3/uL (1.5-5.0); LYMPH % 15.7 % (24.0-44.0); MEAN CORPUSCULAR HEMOGLOBIN 18.2 pg (27.0-33.0); MEAN CORPUSCULAR VOLUME 67.6 fl (80.0-96.0); MONO # 0.2 10^3/uL (0.0-0.8); MONO % 6.4 % (0.0-5.0); NEUTROPHILS # 2.8 10^3/uL (1.5-8.5); NEUTROPHILS % 74.7 % (36.0-66.0); PLATELET COUNT, AUTOMATED 202 10^3/uL (150-450); RED BLOOD COUNT 4.88 10^6/uL (4.00-5.40); WHITE BLOOD COUNT 3.8 10^3/uL (4.0-10.0)
[2019-11-12 10:38] LABS: ALBUMIN 3.6 GM/DL (3.2-5.2); ALT/SGPT 25 U/L (12-78); BILIRUBIN,DIRECT 0.1 MG/DL (0.0-0.2); BILIRUBIN,TOTAL 0.6 MG/DL (0.2-1.0); BLOOD UREA NITROGEN 8 MG/DL (7-18); CALCIUM LEVEL 8.7 MG/DL (8.5-10.1); CARBON DIOXIDE LEVEL 29 MEQ/L (21-32); CHLORIDE LEVEL 108 MEQ/L (98-107); CREATININE FOR GFR 0.68 MG/DL (0.55-1.30); GLOMERULAR FILTRATION RATE > 60.0 (>58); GLUCOSE, FASTING 90 MG/DL (70-100); LIPASE 90 U/L (73-393); POTASSIUM SERUM 4.3 MEQ/L (3.5-5.1); SODIUM LEVEL 141 MEQ/L (136-145); TOTAL PROTEIN 7.1 GM/DL (6.4-8.2)
[2019-11-12 11:05] LABS: HCG, SERUM QUALITATIVE NEGATIVE (NEGATIVE)
[2019-11-12] MEDS ORDERED: FLOM0.4C39 PO (11:53)
[2019-11-12] MEDS ORDERED: ONDA4TAB6 PO (11:53)
[2019-11-12 11:58] VITALS: BP 131/69
--- NOTE | 2019-11-12 12:08 | REP ---
CT ABDOMEN AND PELVIS WITHOUT CONTRAST: CT abdomen and pelvis performed without oral or IV contrast. Sagittal and coronal reconstruction images are performed. Visualized lung bases are clear. The liver is grossly unremarkable. The gallbladder demonstrates a 2.8 cm gallstone internally. There is no definite gallbladder wall thickening. The spleen, adrenals and pancreas are grossly unremarkable. There is no gross right renal abnormality. There is mild left hydronephrosis caused by a 2 mm stone in the proximal left ureter. There is no abdominal aortic aneurysm. There is no adenopathy. There is no free air or free fluid. There no bowel wall thickening. The appendix is normal. No pelvic mass is seen. Urinary bladder is mildly distended and grossly unremarkable. IMPRESSION: There is a 2 mm calculus in the proximal left ureter causing mild left hydronephrosis. Large gallstone in the gallbladder with no evidence of gallbladder wall thickening. No free air or free fluid. Electronically Signed by Jaleel Tsai MD 11/13/2019 10:20 P
== END 2019-11-12 12:05 | disposition home or self-care (01) ==
LOC: M ED 09:08
DX: N20.1 Calculus of ureter (principal); D50.9 Iron deficiency anemia, unspecified; E03.9 Hypothyroidism, unspecified; E28.2 Polycystic ovarian syndrome; M79.7 Fibromyalgia; F41.9 Anxiety disorder, unspecified; F90.9 Attention-deficit hyperactivity disorder, unspecified type; Z98.84 Bariatric surgery status; Z79.899 Other long term (current) drug therapy; Z79.84 Long term (current) use of oral hypoglycemic drugs

== ENCOUNTER 2021-04-23 18:01 | Inpatient (IN) | payer OTHER ==
[~2021-04-23] VITALS: Ht 167.6 cm; Wt 88.7 kg
[2021-04-23] MEDS: dexameTHASONE 4 MG/ML 1ML VIAL (J1100 PER 1MG) IV SCH (02:29)
[2021-04-23] MEDS: ENOXAPARIN 100MG/1ML SYRINGE (J1650 PER 10MG) SC SCH (02:30)
[~2021-04-23 18:01] MED LIST changes: +B-2100TA PO; +DOCU100C17 PO; +FERR325T3 PO; +FLOM0.4C39 PO; +LEVO50TA5 PO; +ONDA4TAB6 PO; +VITA500C24 PO; +VYVA70CA3 PO
--- OUTSIDE RECORDS SUMMARY | 2021-04-23 18:24 | CCD ---
Author Author [facility] Organization [facility] Address Unknown Phone Unavailable Care Team Providers Care Technician Support Association Name Role Phone NEERAJ, Rashel GALEN PA Unavailable Unavailable LETTIERE, A GALEN PA Unavailable Unavailable LETTIERE, A GALEN PA Unavailable Unavailable LETTIERE, A GALEN PA Unavailable Unavailable LETTIERE, A GALEN PA Unavailable Unavailable LETTIERE, A GALEN PA Unavailable Unavailable LETTIERE, A GALEN PA Unavailable Unavailable LETTIERE, A GALEN PA Unavailable Unavailable LETTIERE, A GALEN PA Unavailable Unavailable LETTIERE, A GALEN PA Unavailable Unavailable LETTIERE, A GALEN PA Unavailable Unavailable LETTIERE, A GALEN PA Unavailable Unavailable LETTIERE, A GALEN PA Unavailable Unavailable LETTIERE, A GALEN PA Unavailable Unavailable LETTIERE, A GALEN PA Unavailable Unavailable LETTIERE, A GALEN PA Unavailable Unavailable LETTIERE, A GALEN PA Unavailable Unavailable LETTIERE, A GALEN PA Unavailable Unavailable LETTIERE, A GALEN PA Unavailable Unavailable LETTIERE, A GALEN PA Unavailable Unavailable LETTIERE, A GALEN PA Unavailable Unavailable LETTIERE, A GALEN PA Unavailable Unavailable LETTIERE, A GALEN PA Unavailable Unavailable LETTIERE, A AGLEN PA Unavailable Unavailable LETTIERE, A GALEN PA Unavailable Unavailable LETTIERE, A GALEN PA Unavailable Unavailable LETTIERE, A GALEN PA Unavailable Unavailable LETTIERE, A GALEN PA Unavailable Unavailable LETTIERE, A GALEN PA Unavailable Unavailable LETTIERE, A GALEN PA Unavailable Unavailable LETTIERE, A GALEN PA Unavailable Unavailable Re-disclosure Warning The records that you are about to access may contain information from federally-assisted alcohol or drug abuse programs. If such information is present, then the following federally mandated warning applies: This information has been disclosed to you from records protected by federal confidentiality rules (42 CFR part 2). The federal rules prohibit you from making any further disclosure of this information unless further disclosure is expressly permitted by the written consent of the person to whom it pertains or as otherwise permitted by 42 CFR part 2. A general authorization for the release of medical or other information is NOT sufficient for this purpose. The Federal rules restrict any use of the information to criminally investigate or prosecute any alcohol or drug abuse patient.The records that you are about to access may contain highly sensitive health information, the redisclosure of which is protected by Article 27-F of the [facility] Public Health law. If you continue you may have access to information: Regarding HIV / AIDS; Provided by facilities licensed or operated by the [facility] Office of Mental Health; or Provided by the [facility] Office for People With Developmental Disabilities. If such information is present, then the following [facility] mandated warning applies: This information has been disclosed to you from confidential records which are protected by state law. State law prohibits you from making any further disclosure of this information without the specific written consent of the person to whom it pertains, or as otherwise permitted by law. Any unauthorized further disclosure in violation of state law may result in a fine or intermediate sentence or both. A general authorization for the release of medical or other information is NOT sufficient authorization for further disc losure. Family History Family Member Name Family Member Gender Family Member Status Date o f Status Description Data Source(s) Unknown Male Problem [facility] ([facility] ) Encounters Encounter Providers Location Date Indications Data Source(s ) Outpatient Attender: GALEN rothman 04/16/2021 11:00:00 AM EST [facility] ([facility], [facility]) Medications Medication Brand Name Start Date Product Form Dose Route Admi nistrative Instructions Pharmacy Instructions Status Indications Reaction Description Data Source(s) Ibuprofen 800 MG Oral Tablet Ibuprofen 04/16/2021 12:00:00 AM EST active [facility] ([facility], [facility]) Cyclobenzaprine hydrochloride 10 MG Oral Tablet Cyclobenzapr ine HCL 04/16/2021 12:00:00 AM EST active M [facility] ([facility], [facility]) Insurance Providers Payer name Policy type / Coverage type Policy ID Covered constitution party ID Covered constitution party's relationship to hartley Policy [place] Plan Information [facility] HUMANA [id number] [facility] [id number] EMEDNY [id number] SP [id number] HUMANA [place] O [id number] S [id number] PROGRESSIVE [place] NO FAULT SP RUST HUMANA [id number] 2 [id number] PROGRESSIVE CO NO FAULT O [id number] S [id number] PROGRESSIVE CO NO FAULT [id number] SP [id number] East Referrals Commercial [id number] Family Dependent [id number] [facility] [place] [facility] O [id number] P [id number] BA [place] O [id number] S [id number] SELF PAY ONLY [id number] SP [id number] [id number] [facility]MANA [facility] [id number] 2 [id number] PGBA [place] [id number] 2 [id number] MEDICAID [id number] SP [id number] PGBA [place] [id number] [id number] [employer]/ AD P [id number] P [id number] Problems, Conditions, and Diagnoses No Information Surgeries/Procedures Procedure Description Date Indications Data Source(s) Therapeutic, Prophylactic Or Diagnostic Injection Subq/Im 04/16/2021 12:00:00 AM EST [facility] ([facility], [facility]) OFFICE OUTPATIENT NEW 30 MINUTES 04/16/2021 12:00:00 A M EST [facility] ([facility], [facility]) Results ID Date Data Source [id number] 04/16/2021 12:00:00 AM EST [facility] Name Value Range Interpretation Code Description Data Shazia rce(s) Supporting Document(s) SARS-CoV2 Rapid Antigen Positive [facility] This lab was reported by [facility]. Procedure Social History Code Duration Value Status Description Data Source(s ) Smoking 04/16/2021 12:00:00 AM EST Patient has never smoked co mpleted Patient has never smoked [facility]) Vital Signs ID Date Data Source UNK Name Value Range Interpretation Code Description Data Source(s) Systolic blood pressure 113 mm[Hg] 113 mm[Hg] [facility] Diastolic blood pressure 82 mm[Hg] 82 mm[Hg] [facility]) Heart rate 101 /min 101 /min [facility] ([facility]) Respiratory rate 12 /min 12 /min [facility] ( [facility]) Oxygen saturation in Arterial blood by Pulse oximetry 99 % 99 % [facility] ([facility]) Body temperature 98.6 [degF] 98.6 [degF] [facility] ([facility]) Body weight 190.00 [lb_av] 190.00 [lb_av] [facility] Body height 66 [in_i] 66 [in_i] [facility] ([facility]) 5'6" Body mass index (BMI) [Ratio] 30.7 kg/m2 30.7 k g/m2 [facility] ([facility])
--- OUTSIDE RECORDS SUMMARY | 2021-04-23 18:24 | CCD | Continuity of Care Document ---
Author Author [facility] [place] Organization Unknown Address [address] [place] [address] [place] [address] Phone [phone] Care Team Providers Care Rim Fire Charger Operator Name Role Phone Stiven Strickland MD AUTM Unavailable [facility] AUTM [phone] Problems Description No Information Available Social History Type Date Description Comments Sex Unknown ETOH Use Denies alcohol use Tobacco Use Start: Unknown The patient has never vaped Tobacco Use Start: Unknown Patient has never smoked Smoking Status Reviewed: 04/16/21 Patient has never smoked Allergies and adverse reactions Description No Known Drug Allergies Medications Active Medications SIG Qnty Indications Ordering Provide r Date Ibuprofen 800mg Tablets take one tablet every 6-8hrs with food 50tabs M54.50 Jaylin Smith JR. 04/16/2021 Cyclobenzaprine HCL 10mg Tablets take one every 8 hours as needed. 30tabs M54.50 Zackary Caldwell JR., M.D. 04/16/2021 Metformin HCL ER (Mod) 500mg Tablets ER 24HR bid Unknown Synthroid 50mcg Tablets Unknown Vyvanse 70mg Capsules Unknown Ambien 10mg Tablets prn Unknown Immunizations Description No Information Available Vital Signs Date Vital Result Comment 04/16/2021 2:58pm BP Systolic 113 mmHg BP Diastolic 82 mmHg Heart Rate 101 /min Respiratory Rate 12 /min O2 % BldC Oximetry 99 % Body Temperature 98.6 F Weight 190.00 lb Height 66 inches 5'6" BMI (Body Mass Index) 30.7 kg/m2 Pain Level 10 Results Description No Information Available Procedures Date Code Description Status 04/16/2021 10336 Office/Outpatient New Low MDM 30 -44 Minutes Completed 04/16/2021 14150 Therapeutic, Prophylactic Or Darling gnostic Injection Subq/Im Completed Medical Devices Description No Information Available Encounters Type Date Location Provider Dx Diagnosis Office Visit 04/16/2021 12:00p Main Office NICOLA Cotter M54 .50 Low back pain, unspecified J06.9 Acute upper respiratory infe ction, unspecified U07.1 Covid-19 Assessments Date Code Description Provider 04/16/2021 M54.50 Low back pain, unspecified Ej NICOLA Loredo 04/16/2021 J06.9 Acute upper respiratory infectio n, unspecified NICOLA Cotter 04/16/2021 U07.1 Covid-19 NICOLA Jacobo Plan of Treatment No Information Available Functional Status Description No Information Available Mental Status Description No Information Available Referrals Refer to Dr Reason for Referral Status Appt Date Adalberto Pickard PA Created [facility] [address] [place] [phone]
--- OUTSIDE RECORDS SUMMARY | 2021-04-23 18:24 | CCD | Continuity of Care Document ---
Author Author [facility]ocasta PICKARD [place] Organization Unknown Address [address] [place] [address] [place] [address] Phone [phone] Care Team Providers Care Senior Linux Unix Engineer Name Role Phone Stiven Strickland MD AUTM Unavailable [facility] AUTM Problems Description No Information Available Social History [...] Available Procedures Date Code Description Status 04/16/2021 80378 Office/Outpatient New Low MDM 30 -44 Minutes Completed Medical Devices Description No Information Available [...] Status Appt Date Adalberto Pickard PA Created [facility] [address] [place] [phone]
--- OUTSIDE RECORDS SUMMARY | 2021-04-23 18:24 | CCD | Continuity of Care Document ---
Author Author [facility] [place] Organization Unknown Address [address] [place] [address] Phone [phone] Problems Description No Information Available Social History Type Date Description Comments Sex Unknown ETOH Use Denies alcohol use Tobacco Use Start: Unknown Patient has never smoked Sun Exposure minimum amount of sun exposure Sun Exposure Has never used tanning bed Sun Exposure Has never experienced blistering from sunburns Sun Exposure Uses > 30 SPF Allergies, Adverse Reactions, Alerts Description No Known Drug Allergies Medications Active Medications SIG Qnty Indications Ordering Provide r Date Synthroid Unknown Metformin HCL Unknown Immunizations Description No Information Available Vital Signs Description No Information Available Results Description No Information Available Procedures Description No Information Available Medical Devices Description No Information Available Encounters Description No Information Available Assessments Date Code Description Provider 02/04/2021 L98.8 Other specified disorders of the skin and subcutaneous tissue Chapis 09/11/2020 L98.8 Other specified disorders of the skin and subcutaneous tissue Gi Gage, F.N.P. 08/28/2020 L98.8 Other specified disorders of the skin and subcutaneous tissue Gi Gage, F.N.P. Plan of Treatment Future Appointment(s):* 02/18/2021 12:30 pm - Cosmetic Consultation at [facility] 09/11/2020 - Gi Gage, F.N.P.* L98.8 Other specified disorders of the skin and subcutaneous tissue* Comments:* Patient tolerated well. Encouraged to follow up in 2 weeks. Verbalizes understanding of Patient Education provided.Call with problems. Functional Status Description No Information Available Mental Status Description No Information Available Referrals Description No Information Available
[2021-04-23] MEDS ORDERED: METF500T13 PO (18:43)
[2021-04-23] MEDS ORDERED: HYDR-4570 PO (18:43)
[2021-04-23] MEDS ORDERED: MAGN400T33 PO (18:43)
[2021-04-23] MEDS ORDERED: CYCL-707 PO (18:43)
[2021-04-23] MEDS ORDERED: IBUP80TA (18:43)
--- OUTSIDE RECORDS SUMMARY | 2021-04-23 19:01 | CCD ---
Author Author [facility] Organization [facility] Address Unknown Phone Unavailable Care Team Providers Care Glue Bone Drier Name Role Phone NEERAJ, Rashel AARON PA Unavailable Unavailable LETTIERE, A GALEN PA [...] is protected by Article 27-F of the [facility] Public Health law. If you continue you may have access to information: Regarding HIV / AIDS; Provided by facilities licensed or operated by the [facility] Office of Mental Health; or Provided by the [facility] Office for People With Developmental Disabilities. If such information is present, then the following [facility] mandated warning applies: This information has [...] law may result in a fine or senior living sentence or both. A general authorization for the release of medical or other information is NOT sufficient authorization for further disc losure. Family History Family Member Name Family Member Gender Family Member Status Date o f Status Description Data Source(s) Unknown Male Problem MEDENT ([facility] ) Encounters Encounter Providers Location Date Indications Data Source(s ) Outpatient Attender: GALEN rothman 04/16/2021 11:00:00 AM EST MEDENT ([facility], [facility]) Medications Medication Brand Name Start Date Product Form Dose Route Admi nistrative Instructions Pharmacy Instructions Status Indications Reaction Description Data Source(s) Ibuprofen 800 MG Oral Tablet Ibuprofen 04/16/2021 12:00:00 AM EST active MEDENT ([facility], [facility]) Cyclobenzaprine hydrochloride 10 MG Oral Tablet Cyclobenzapr ine HCL 04/16/2021 12:00:00 AM EST active M EDENT ([facility], [facility]) Insurance Providers Payer name Policy type / Coverage type Policy ID Covered democrat ID Covered democrat's relationship to hartley Policy Hartley Plan Information [facility] [id number] [facility] [id number] EM[place] [id number] SP [id number] [facility] O [id number] S [id number] PROGRESSIVE CO NO FAULT SP [facility] [id number] [facility] [id number] PROGRESSIVE CO NO FAULT O [id number] S [id number] PROGRESSIVE CO NO FAULT [id number] SP [id number] [facility] Referrals Commercial [id number] Family Dependent [id number] [facility] O [id number] [facility] MAURICE O [id number] S [id number] SELF PAY ONLY [id number] SP [id number] [facility] [id number] 2 [id number] [facility] [id number] 2 [id number] MEDICAID [id number] SP [id number] [facility] [id number] 2 [id number] [facility]/ AD P [id number] P [id number] Problems, Conditions, and Diagnoses No Information Surgeries/Procedures Procedure Description Date Indications Data Source(s) Therapeutic, Prophylactic Or Diagnostic Injection Subq/Im 04/16/2021 12:00:00 AM EST [facility] ([facility], [facility]) OFFICE OUTPATIENT NEW 30 MINUTES 04/16/2021 12:00:00 A M EST MEDENT ([facility], [facility]) Results ID Date Data Source [id number] 04/16/2021 12:00:00 AM EST [facility] Name Value Range Interpretation Code Description Data Shazia rce(s) Supporting Document(s) SARS-CoV2 Rapid Antigen Positive [facility] This lab was reported by [facility]. Procedure Social History Code Duration Value Status Description Data Source(s ) Smoking 04/16/2021 12:00:00 AM EST Patient has never smoked co mpleted Patient has never smoked MEDENT ([facility]) Vital Signs ID Date Data Source UNK Name Value Range Interpretation Code Description Data Source(s) Systolic blood pressure 113 mm[Hg] 113 mm[Hg] M EDENT ([facility]) Diastolic blood pressure 82 mm[Hg] 82 mm[Hg] [facility]) Heart rate 101 /min 101 /min [facility] ([facility]) Respiratory rate 12 /min 12 /min [facility] ( [facility]) Oxygen saturation in Arterial blood by Pulse oximetry 99 % 99 % [facility] ([facility]) Body temperature 98.6 [degF] 98.6 [degF] [facility] ([facility]) Body weight 190.00 [lb_av] 190.00 [lb_av] [facility] ([facility]) Body height 66 [in_i] 66 [in_i] [facility] ([facility]) 5'6" Body mass index (BMI) [Ratio] 30.7 kg/m2 30.7 k g/m2 [facility] ([facility])
[2021-04-23 19:11] LABS: HEMATOCRIT 43.9 % (36.0-47.0); HEMOGLOBIN 14.4 g/dl (12.0-15.5); MEAN CORPUSCULAR HEMOGLOBIN 27.3 pg (27.0-33.0); MEAN CORPUSCULAR HGB CONC 32.8 g/dl (32.0-36.5); MEAN CORPUSCULAR VOLUME 83.1 fl (80.0-96.0); PLATELET COUNT, AUTOMATED 116 10^3/uL (150-450); RED BLOOD COUNT 5.28 10^6/uL (4.00-5.40); WHITE BLOOD COUNT 3.2 10^3/uL (4.0-10.0)
--- NOTE | 2021-04-23 19:12 | REP ---
INDICATION: CHEST PAIN COMPARISON: None. TECHNIQUE: Portable AP view of the chest FINDINGS: Perihilar and lower lobe opacities suggest multifocal pneumonia. Differential diagnosis includes COVID-19 pulmonary disease and correlation is required. No effusion. No pneumothorax. Cardiac silhouette is normal. IMPRESSION: Bilateral opacities concerning for multifocal pneumonia versus COVID-19 pulmonary disease. <Electronically signed by Jesus Busch > 04/23/21 [id number]
[2021-04-23] MEDS ORDERED: NS 1,000 ML IV ONE (19:15)
[2021-04-23] MEDS ORDERED: ACETAMINOPHEN 325 MG TAB PO ONE (19:15)
[2021-04-23 19:28] LABS: PROTHROMBIN TIME 13.6 SECONDS (12.7-14.5)
[2021-04-23 19:29] LABS: PARTIAL THROMBOPLASTIN TIME 34.8 SECONDS (25.9-37.0)
[2021-04-23 19:31] LABS: D-DIMER QUANT 1918.19 ng/ml (<500)
[2021-04-23 19:38] LABS: CK-MB VALUE MASS < 1.0 NG/ML (<3.6); CPK CREATINE PHOSPHOKINASE 161 U/L (26-192); MB/CK RELATIVE INDEX 0.62 (< OR =4); TROPONIN I < 0.02 NG/ML (< 0.10)
[2021-04-23 19:49] LABS: ATYPICAL LYMPH 5 % (0-5); BASOPHILS 1 % (0-1); LYMPHOCYTES 19 % (16-44); MONOCYTES 1 % (0-5); NEUTROPHILS 73 % (28-66)
[2021-04-23 19:50] LABS: PLATELET ESTIMATE DECREASED (NORMAL)
[2021-04-23 19:55] LABS: ALBUMIN 3.1 GM/DL (3.2-5.2); ALT/SGPT 30 U/L (12-78); BILIRUBIN,DIRECT 0.4 MG/DL (0.0-0.2); BLOOD UREA NITROGEN 8 MG/DL (7-18); C REACTIVE PROTEIN QUANTITATIV 8.81 MG/DL (0.00-0.30); CALCIUM LEVEL 8.2 MG/DL (8.5-10.1); CARBON DIOXIDE LEVEL 30 MEQ/L (21-32); CHLORIDE LEVEL 101 MEQ/L (98-107); CREATININE FOR GFR 0.91 MG/DL (0.55-1.30); FERRITIN 152 NG/ML (8-252); GLOMERULAR FILTRATION RATE > 60.0 (>58); GLUCOSE, FASTING 101 MG/DL (70-100); LDH LACTATE DEHYDROGENASE 388 U/L (84-246); LIPASE 583 U/L (73-393); MAGNESIUM LEVEL 2.1 MG/DL (1.8-2.4); NT-PRO BNP 35 PG/ML (<125); POTASSIUM SERUM 3.5 MEQ/L (3.5-5.1); SODIUM LEVEL 138 MEQ/L (136-145); TOTAL PROTEIN 7.4 GM/DL (6.4-8.2)
--- NOTE | 2021-04-23 23:48 | HPEPDOC ---
[facility] Medical History & Physical Date of Admission Apr 23, 2021 Date of Service: Apr 23, 2021 Other Provider [facility] Attending Physician: TORRI MCKEON MD History and Physical TIME OF SERVICE: 1120pm CHIEF COMPLAINT: dyspnea HISTORY OF PRESENT ILLNESS: For the last 3 days, a 46 yr old F has been having dyspnea that is worse with exertion and is associated with cough, chills, sore throat, chest pain, loss of taste and smell along with weakness. She was exposed to someone with COVID last Monday and has not been vaccinated. REVIEW OF SYSTEMS: 10-point review of systems negative except as listed in HPI PAST MEDICAL/ SURGICAL HISTORY: PCOS, Fibromyalgia, ADHD, anxiety, hypothyroidism, class 1 obesity, Gastric Sleeve and liposuction SOCIAL HISTORY: She doesnt smoke. She is a (her of suicide) FAMILY HISTORY: reviewed with patient not relevant to current hospitalization ALLERGIES: Please see below. HOME MEDICATIONS: Please see below. PHYSICAL EXAMINATION: Vital Signs Date Time Temp Pulse Resp B/P (MAP) Pulse Ox O2 Delivery O2 Flow Rate FiO2 04/23/21 18:03 98.1 101 18 112/68 (83) 98 Room Air GENERAL APPEARANCE: well-nourished and developed / NAD HEENT: EOMI / MMM &P CARDIOVASCULAR: RRR/NMRG / no BLE edema LUNGS: CTAB on RA / O2 sats 91% at rest and drop to 89% w exertion ABDOMEN: contour convex MUSCULOSKELETAL: NCAT / COY x 4 INTEGUMENT: not flushed or diaphoretic NEUROLOGICAL: CN 2-12 grossly intact /speech not dysarthric PSYCHIATRIC: A&Ox 3/ able to understand and follow all commands / flat affect LABORATORY DATA: IMAGING: IMPRESSION: Bilateral opacities concerning for multifocal pneumonia versus COVID-19 pulmonary disease. MICROBIOLOGY: + COVID 19 ASSESSMENT: Ms. Quintana is a 46 yr old F w PCOS, Fibromyalgia, ADHD, anxiety, hypothyroidism, & obesity who is admitted for hypoxemia 2/2 COVID 19 PNA. PLAN: 1 Hypoxemia 2/2 COVID-19 PNA Plan: admit to medical floor / continuous pulse ox / supplemental O2 (target O2 sats between 92-95%) / awake proning / contact & air borne precautions / f/u repeat plts (if low indicates bad prognosis), CRP (if high indicates bad prognosis), INR, BMP (40% of pts with COVID develop ARBEN) , INR, D-dimer, PT, PTT, fibrinogen (if patient has DIC indicates bad prognosis), ferritin, LDH, troponins (if elevated will need Echo to r/o viral cardiomyopathy) / VBG to assess the degree of hypoxemia / because this is a viral PNA and she doensnt have a fever I will hold off abx (procal ordered in the ER is pending) / bc the d-dimer is elevated we will start her on medium dose Lovenox with ASA and check BLE US to r/o DVT / IV dexamethasone / Remdesivir / will ask the day time team to call ID or Pulm for to order Baricitinb 2 SIRS (tachycardia 101 w leukopenia) is reactive 2/2 COVID. Lactic acid is wnl. - monitor vitals & f/u blood cx 3 PCOS - hold metformin 4 hypothyroidism - Levothyroxine 5 Fibromyalgia / ADHD/ anxiety - Cyclobenzaprine 6 WALE - hold iron while acutely ill 7 obesity - complicates care / check A1C DVT px w lovenox and ASA Dispo: home after more than 2 midnights stay Home Medications Scheduled Ascorbic Acid (Vitamin C) 500 Mg Capsule, 500 MG PO DAILY Cyclobenzaprine HCl (Cyclobenzaprine HCl) 10 Mg Tablet, 10 MG PO DAILY Docusate Sodium (Docusate Sodium) 100 Mg Capsule, 100 MG PO BID Ferrous Sulfate (Ferrous Sulfate) 325 Mg Tablet.dr, 65 MG PO DAILY Levothyroxine Sodium (Levothyroxine Sodium) 50 Mcg Tablet, 50 MCG PO DAILY Lisdexamfetamine Dimesylate (Vyvanse) 70 Mg Capsule, 70 MG PO QAM Magnesium Oxide (Magnesium Oxide) 400 Mg Tablet, 400 MG PO DAILY Metformin HCl (Metformin HCl) 500 Mg Tablet, 500 MG PO BID Zolpidem Tartrate (Ambien) 10 Mg Tablet, 10 MG PO QHS Scheduled PRN Hydroxyzine HCl (Hydroxyzine HCl) 25 Mg Tablet, 25 MG PO TID PRN for ANXIETY Allergies Coded Allergies: No Known Allergies (Unverified , 12/08/18) A-FIB/CHADSVASC A-FIB History Current/History of A-Fib/PAF?: No Current PO Anticoag Therapy: No TORRI MCKEON MD Apr 23, 2021 23:48
--- OUTSIDE RECORDS SUMMARY | 2021-04-23 23:59 | CCD ---
Author Author [facility] Organization [facility] Address Unknown Phone Unavailable Care Team Providers Care Fire Control Assistant Name Role Phone NEERAJ, Rashel AARON PA [...] is protected by Article 27-F of the [facility] Public Health law. If you continue you may have access to information: Regarding HIV / AIDS; Provided by facilities licensed or operated by the [facility] Office of Mental Health; or Provided by the [facility] Office for People With Developmental Disabilities. If such information is present, then the following [facility] mandated warning applies: This information has [...] law may result in a fine or care home sentence or both. A general authorization for the release of medical or other information is NOT sufficient authorization for further disc losure. Family History Family Member Name Family Member Gender Family Member Status Date o f Status Description Data Source(s) Unknown Male Problem [facility] ([facility] ) Encounters Encounter Providers Location Date Indications Data Source(s ) Outpatient Attender: GALEN rohtman 04/16/2021 11:00:00 AM EST MEDENT ([facility] [place] [facility], [facility]) Medications Medication Brand Name Start Date Product Form Dose Route Admi nistrative Instructions Pharmacy Instructions Status Indications Reaction Description Data Source(s) Ibuprofen 800 MG Oral Tablet Ibuprofen 04/16/2021 12:00:00 AM EST active MED[facility] ([facility], [facility]) Cyclobenzaprine hydrochloride 10 MG Oral Tablet Cyclobenzapr ine HCL 04/16/2021 12:00:00 AM EST active M EDENT ([facility], [facility]) Insurance Providers Payer name Policy type / Coverage type Policy ID Covered green party ID Covered green party's relationship to hartley Policy Hartley Plan Information [facility] [id number] [facility] [id number] EMEDNY [id number] SP [id number] [facility] O [id number] S [id number] PROGRESSIVE CO NO FAULT SP [facility] [id number] [facility] [id number] PROGRESSIVE CO NO FAULT O [id number] S [id number] PROGRESSIVE CO NO FAULT [id number] SP [id number] [facility] Referrals Commercial [id number] Family Dependent [id number] [facility] O [id number] P [id number] [facility] MAURICE O [id number] S [id number] SELF PAY ONLY [id number] SP [id number] [facility] [id number] 2 [id number] [facility] [id number] 2 [id number] MEDICAID [id number] SP [id number] [facility] [id number] 2 [id number] [facility]/ AD P [id number] P [id number] Problems, Conditions, and Diagnoses No Information Surgeries/Procedures Procedure Description Date Indications Data Source(s) Therapeutic, Prophylactic Or Diagnostic Injection Subq/Im 04/16/2021 12:00:00 AM EST [facility] ([facility], [facility]) OFFICE OUTPATIENT NEW 30 MINUTES 04/16/2021 12:00:00 A M EST [facility] ([facility], [facility]) Results ID Date Data Source [id number] 04/16/2021 12:00:00 AM EST [facility] Name Value Range Interpretation Code Description Data Shazia rce(s) Supporting Document(s) SARS-CoV2 Rapid Antigen Positive [facility] This lab was reported by [facility]. Procedure Social History Code Duration Value Status Description Data Source(s ) Smoking 04/16/2021 12:00:00 AM EST Patient has never smoked co mpleted Patient has never smoked [facility] ([facility]) Vital Signs ID Date Data Source UNK Name Value Range Interpretation Code Description Data Source(s) Systolic blood pressure 113 mm[Hg] 113 mm[Hg] M EDENT ([facility]) Diastolic blood pressure 82 mm[Hg] 82 mm[Hg] [facility] ([facility]) Heart rate 101 /min 101 /min [facility] ([facility]) Respiratory rate 12 /min 12 /min [facility] ( [facility]) Oxygen saturation in Arterial blood by Pulse oximetry 99 % 99 % [facility] ([facility]) Body temperature 98.6 [degF] 98.6 [degF] [facility] ([facility]) Body weight 190.00 [lb_av] 190.00 [lb_av] [facility] ([facility]) Body height 66 [in_i] 66 [in_i] [facility] ([facility]) 5'6" Body mass index (BMI) [Ratio] 30.7 kg/m2 30.7 k g/m2 [facility] ([facility])
[2021-04-24] MEDS ORDERED: AMBI10TA PO (00:07)
[2021-04-24] MEDS ORDERED: HOME MED LIST COMPLETE! XX SCH (00:10)
[2021-04-24] MEDS ORDERED: hydrOXYzine 25 MG TAB PO PRN (01:20)
[2021-04-24] MEDS ORDERED: REMDESIVIR 200 MG in NS 250 ML IV ONE (02:00)
[2021-04-24 02:04] LABS: C REACTIVE PROTEIN QUANTITATIV 7.12 MG/DL (0.00-0.30); CREATININE FOR GFR 0.58 MG/DL (0.55-1.30); GLOMERULAR FILTRATION RATE > 60.0 (>58)
[2021-04-24] MEDS ORDERED: SODIUM CHLORIDE 0.9% INJ 10 ML SYR IV ONE (04:00)
--- NOTE | 2021-04-24 04:31 | REPVR ---
PROCEDURE INFORMATION: Exam: US Duplex Lower Extremity Veins, Bilateral Exam date and time: 04/24/21 (3:34am) Age: 46 years old Clinical indication: Bilateral lower leg pain. Possible DVT. TECHNIQUE: Imaging protocol: Real-time duplex ultrasound of the extremities with 2-D phillips scale, color Doppler flow and spectral waveform analysis with image documentation. Complete examination focused on the bilateral lower extremity veins. COMPARISON: CT ABDOMEN PELVIS of 11/12/19 FINDINGS: Right deep veins: Unremarkable. The common femoral, femoral, proximal profunda femoral, popliteal and calf veins are patent without thrombus. Normal Doppler waveforms. Normal compressibility and/or augmentation response. Right superficial veins: Saphenofemoral junction is patent without thrombus. Left deep veins: Unremarkable. The common femoral, femoral, proximal profunda femoral, popliteal and calf veins are patent without thrombus. Normal Doppler waveforms. Normal compressibility and/or augmentation response. Left superficial veins: Saphenofemoral junction is patent without thrombus. Soft tissues: Unremarkable. IMPRESSION: No evidence of deep vein thrombosis (both legs examined). Electronically signed by: Bonita Howard On 04/24/2021 04:31:02 AM
[2021-04-24] MEDS: DOCUSATE SODIUM 100MG CAPSULE PO SCH ×2 (06:00→09:00)
[2021-04-24 06:30] VITALS: BP 112/73
--- NOTE | 2021-04-24 08:11 | ECGEPIP ---
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
[2021-04-24 08:49] LABS: APPEARANCE, URINE CLEAR (CLEAR); BACTERIA, URINE AUTO NEGATIVE (NEGATIVE); BILIRUBIN, URINE AUTO NEGATIVE (NEGATIVE); BLOOD, URINE BLOOD NEGATIVE (NEGATIVE); COLOR, URINE YELLOW (YELLOW); GLUCOSE, URINE (UA) AUTO NEGATIVE (NEGATIVE); KETONE, URINE AUTO 1+ mg/dL (NEGATIVE); LEUKOCYTE ESTERASE, URINE AUTO NEGATIVE (NEGATIVE); MUCUS, URINE SMALL (NEGATIVE); NITRITE, URINE AUTO NEGATIVE (NEGATIVE); PROTEIN, URINE AUTO NEGATIVE (NEGATIVE); RBC, URINE AUTO 2 /HPF (0-3); SPECIFIC GRAVITY URINE AUTO 1.012 (1.002-1.035); SQUAMOUS EPITHELIAL CELL UR AU 2 /HPF (0-6); WBC, URINE AUTO 1 /HPF (0-3)
[2021-04-24] MEDS: CYCLOBENZAPRINE 10MG TABLET PO SCH (09:00)
[2021-04-24] MEDS ORDERED: LISDEXAMFETAMINE 70 MG PO SCH (09:00)
[2021-04-24] MEDS: ENOXAPARIN 100MG/1ML SYRINGE (J1650 PER 10MG) SC SCH ×2 (09:00→22:53)
[2021-04-24] MEDS: LEVOTHYROXINE 50MCG TABLET (0.05MG) PO SCH (09:20)
[2021-04-24] MEDS: ASPIRIN 81 MG CHEW TABLET PEG SCH (09:20)
--- NOTE | 2021-04-24 12:26 | IPNPDOC ---
Subjective Date Seen The patient was seen on 04/24/21. Subjective Chief Complaint/HPI Patient is examined at bedside. She reported dry cough. She denies fever, chills, dyspnea, wheezing, chest pain, chest pressure, abdominal pain, nausea, or vomiting. She reported that she was tested positive for COVID on 04/16/2021. It was noted that patient was saturating on 100% on 2L nasal cannula oxygen. A 10-point review of system negative aside from positive findings in HPI. Objective Physical Examination General Exam: Positive: Alert, Cooperative, No Acute Distress Eye Exam: Positive: Conjunctiva & lids normal; Negative: Sclera icteric ENT Exam: Positive: Atraumatic, Mucous membr. moist/pink Chest Exam: Positive: Normal air movement, Rhonchi; Negative: Rales, Wheezing, Diminished Heart Exam: Positive: Rate Normal, Regular Rhythm, Normal S1, Normal S2; Negative: Murmurs Abdomen Exam: Positive: Normal bowel sounds, Soft; Negative: Tenderness Extremity Exam: Positive: Tenderness (No tenderness in bilateral calves), Other; Negative: Cyanosis Skin Exam: Positive: Nl turgor and temperature; Negative: Rash Neuro Exam: Positive: Normal Speech, Normal Tone Psych Exam: Positive: Mental status NL, Mood NL, Memory Intact, Oriented x 3 Assessment /Plan Assessment Patient is a 46 year old female who reported testing positive for COVID pn eum[place] on 04/16/2021 presented to [facility] due to dyspnea, chest pain, and cough. She was reported to have been saturating at 89% on room air with bilateral opacities concerning in chest x ray. Patient was started on IV Dexamethasone and Remdisivir. #COVID19 infection -Patient reported dry cough, denies chest pain, chest pressure, or dyspnea. -She was noted to be saturating on 100% on 2L nasal cannula this morning and was transitioned to room air; continued to saturate at 95% -Continue awake proning. Continue contact & air borne precautions -Follow up repeat platelets, CRP, INR, BMP, D-dimer, PT, PTT, fibrinogen, ferritin, LDH, troponin -Procalcitonin<0.05, unlikely superimposed bacteria pneumonia -Elevated d-dimer, continue medium dose Lovenox and aspirin. No DVT shown in bilateral lower extremity doppler US -Continue IV dexamethasone and Remdesivir. Will not start Baricitinb at this time as patient has been saturating 100% on 2L oxygen supplementation and will be titrated down oxygen as tolerated #SIRS likely reactive 2/2 COVID, resolved -Tachycardia resolved. Patient had leukopenia on initial CBC, continue to follow up with CBC -Lactic acid within normal range. Blood culture pending # hypothyroidism -Continue home med Levothyroxine #Fibromyalgia -Continue home med Cyclobenzaprine #ADHD -Continue holding home med Vyvanse #Anxiety -Mood appears stable -Continue home med Hydroxyzine PRN #Iron deficiency anemia -Continue to hold iron while acutely ill also ferritin is being trended as an inflammatory marker # PCOS -Continue holding home metformin at this time #Obesity -Complicates care -A1C of 5.0, no diabetes or pre-diabetes DVT prophylaxis: Lovenox SC Disposition: Pending clinical improvement and oxygen down-titration. Anticipate 1 more night of stay Plan/VTE VTE Prophylaxis Ordered?: Yes VS, I&O, 24H, Fishbone Vital Signs/I&O Vital Signs Date Time Temp Pulse Resp B/P (MAP) Pulse Ox O2 Delivery O2 Flow Rate FiO2 04/24/21 06:30 97.6 66 18 112/73 (86) 95 Nasal Cannula 2.0 Laboratory Data 24H LABS Laboratory Tests 2 04/23/21 18:48: Neutrophils (%) (Auto) , Nucleated Red Blood Cells % (auto) 0.0, Neutrophils 73H, Band Neutrophils 1, Lymphocytes (Manual) 19, Monocytes (Manual) 1, Basophils (Manual) 1, Atypical Lymphocytes 5, Platelet Estimate DECREASED, Prothrombin Time 13.6, Prothromb Time International Ratio 1.00, Activated Partial Thromboplast Time 34.8, Fibrinogen 546H, D-Dimer, Quantitative 1918.19H, Anion Gap 7L, Glomerular Filtration Rate > 60.0, Lactic Acid Level 1.6, Calcium Level 8.2L, Magnesium Level 2.1, Ferritin 152, Total Bilirubin 1.0, Direct Bilirubin 0.4H, Aspartate Amino Transf (AST/SGOT) 54H, Alanine Aminotransferase (ALT/SGPT) 30, Alkaline Phosphatase 75, Lactate Dehydrogenase 388H, Total Creatine Kinase 161, Creatine Kinase MB < 1.0, Creatine Kinase MB Relative Index 0.62, Troponin I < 0.02, C-Reactive Protein, Quantitative 8.81H, AD-Ayi-P-Type Natriuretic Peptide 35, Total Protein 7.4, Albumin 3.1L, Albumin/Globulin Ratio 0.7L, Lipase 583H, Thyroid Stimulating Hormone (TSH) 1.310 04/24/21 01:21: Glomerular Filtration Rate > 60.0, Lactate Dehydrogenase 349H, C-Reactive Protein, Quantitative 7.12H 04/24/21 06:00: Estimated Mean Plasma Glucose 97, Hemoglobin A1c 5.0 CBC/BMP Laboratory Tests 04/23/21 18:48 04/24/21 01:21 Microbiology Microbiology 04/24/21 Blood Culture, Received Pending 04/23/21 Respiratory Virus Panel (PCR) ([facility]) - Final, Complete SARS-CoV-2 (COVID 19) 04/23/21 Blood Culture, Received Pending GME ATTESTATION GME ATTESTATION My faculty preceptor for this patient encounter was physically present during the encounter and was fully available. All aspects of the patient interview, examination, medical decision making process, and medical care plan development were reviewed and approved by the faculty preceptor. The faculty preceptor is aware and concurs with the plan as stated in the body of this note and will attest to such by his/her cosignature. ATTENDING NOTE I, Bonnie Hahn, have independently examined this patient and performed my own physical exam, as well as reviewed the documentation and edited where necessary with the resident. For medical students we have performed the physical exam together and discussed medical decision making and I have verified the history. I have discussed in detail with the resident / student the findings and plan of treatment as documented by the resident / student and edited their note. I agree with their findings and treatment plan and have edited their documentation. I will continue to follow the patient during this hospital stay. MASHA LIAO DO Apr 24, 2021 08:32 BONNIE HAHN MD Apr 24, 2021 12:55
[2021-04-24] MEDS ORDERED: DOCUSATE SODIUM 100MG CAPSULE PO PRN (12:30)
[2021-04-24 14:00] VITALS: BP 109/66
[2021-04-24 14:21] LABS: BLOOD UREA NITROGEN 10 MG/DL (7-18); CALCIUM LEVEL 8.6 MG/DL (8.5-10.1); CARBON DIOXIDE LEVEL 27 MEQ/L (21-32); CHLORIDE LEVEL 109 MEQ/L (98-107); CREATININE FOR GFR 0.68 MG/DL (0.55-1.30); GLOMERULAR FILTRATION RATE > 60.0 (>58); GLUCOSE, FASTING 118 MG/DL (70-100); MAGNESIUM LEVEL 2.6 MG/DL (1.8-2.4); SODIUM LEVEL 142 MEQ/L (136-145)
[2021-04-24 20:00] VITALS: BP 106/66; O2SAT 96
[2021-04-24 21:00] VITALS: O2SAT 96
[2021-04-24 22:00] VITALS: O2SAT 94
[2021-04-24] MEDS: dexameTHASONE 4 MG/ML 1ML VIAL (J1100 PER 1MG) IV SCH (22:52)
[2021-04-24 23:00] VITALS: O2SAT 94
[2021-04-24] MEDS ORDERED: hydrOXYzine 50 MG TAB PO PRN (23:55)
[2021-04-24] MEDS ORDERED: traZODone 50 MG TAB PO PRN (23:55)
[2021-04-24] MEDS ORDERED: RAMELTEON 8 MG TAB (ROZEREM) PO PRN (23:55)
[2021-04-25] VITALS (9 sets, daily range): BP systolic 94–110; BP diastolic 52–70; O2SAT 92–96
[2021-04-25] MEDS ORDERED: UNRESOLVED PATIENT OWN MED ORDER XX SCH (00:01)
[2021-04-25] MEDS ORDERED: REMDESIVIR 100 MG in NS 250 ML IV SCH (06:00)
[2021-04-25] MEDS ORDERED: SODIUM CHLORIDE 0.9% INJ 10 ML SYR IV SCH (07:00)
[2021-04-25 07:48] LABS: INR 0.98; PARTIAL THROMBOPLASTIN TIME 33.3 SECONDS (25.9-37.0); PROTHROMBIN TIME 13.4 SECONDS (12.7-14.5)
[2021-04-25 08:02] LABS: CPK CREATINE PHOSPHOKINASE 112 U/L (26-192); TROPONIN I < 0.02 NG/ML (< 0.10)
[2021-04-25 08:11] LABS: ALBUMIN 2.7 GM/DL (3.2-5.2); BILIRUBIN,DIRECT 0.2 MG/DL (0.0-0.2); BILIRUBIN,TOTAL 0.4 MG/DL (0.2-1.0); TOTAL PROTEIN 6.6 GM/DL (6.4-8.2)
[2021-04-25] MEDS ORDERED: PRED10TA2 PO (08:31)
[2021-04-25] MEDS: ASPIRIN 81 MG CHEW TABLET PEG SCH (08:39)
[2021-04-25] MEDS: LEVOTHYROXINE 50MCG TABLET (0.05MG) PO SCH (08:39)
[2021-04-25] MEDS: ENOXAPARIN 100MG/1ML SYRINGE (J1650 PER 10MG) SC SCH (08:40)
[2021-04-25] MEDS: CYCLOBENZAPRINE 10MG TABLET PO SCH (08:42)
[2021-04-25] MEDS ORDERED: INFLUENZA QUADRIVALENT PF VACCINE 0.5ML SYRINGE IM ONE (09:00)
--- NOTE | 2021-04-25 12:33 | DS.PDOC ---
Discharge Summary General Date of Admission Apr 23, 2021 at 23:48 Date of Discharge 04/25/2021 Discharge Summary PROCEDURES PERFORMED DURING STAY: [None]. ADMITTING DIAGNOSES / DISCHARGE DIAGNOSES: COVID19 infection Hypothyroidism Fibromyalgia / Anxiety / ADHD Iron deficiency anemia PCOS Obesity DVT prophylaxis COMPLICATIONS/CHIEF COMPLAINT: Shortness of breath HISTORY OF PRESENT ILLNESS: Patient is a 46-year-old female with a PMHx of Recent Hx of COVID19 (Dx 04/16/2021), Hypothyroidism, Iron deficiency, PCOS, Fibromyalgia / ADHD / Anxiety, Obesity, who presented to the ER with complaints of shortness of breath. In the emergency room, patient was reported to be hypoxic, saturating at 89% on room air. Hospitalist service was called for further evaluation and treatment. Patient was seen and examined at the bedside. Denies any CP, SOB, palpitations, nausea, vomiting, abdominal pain, constipation, diarrhea, or urinary discomfort. Yesterday morning, patient was titrated off oxygen and has remained on room air since that point. HOSPITAL COURSE: COVID19 infection - Currently patient denies any significant shortness breath, chest pain or cough - Patient has required a maximum 2 L nasal cannula and has been tolerating room air. Over the last 24 hours - PCT of 0.05; less likely superimposed bacterial infection - Imaging noted below - Will DC Remdesivir and Dexamethasone; c/w Prednisone taper on discharge Hypothyroidism - c/w Levothyroxine Fibromyalgia / Anxiety / ADHD - c/w Cyclobenzaprine / Hydroxyzine - Will resume Vyvanse on discharge Iron deficiency anemia - Will resume Iron supplementation on discharge PCOS - c/w Metformin on DC Obesity - BMI of 31.6 - Complicating medical care DVT prophylaxis - c/w Lovenox DISCHARGE MEDICATIONS: Please see below. ALLERGIES: Please see below. PHYSICAL EXAMINATION ON DISCHARGE: Vitals (See below) General: Lying in bed, appears comfortable, AAOx3 HEENT: NC, AT CVS: RRR, +S1S2 Lungs: Fair air entry b/l, no wheezing / rales / rhonchi Abdomen: Soft, ND, NT Extremities: - Edema, - Calf tenderness LABORATORY DATA: Please see below. IMAGING: CXR 04/23: Bilateral opacities concerning for multifocal pneumonia versus COVID-19 pulmonary disease. Duplex US 04/23: No evidence of deep vein thrombosis (both legs examined). ACTIVITY: [As tolerated]. DISCHARGE PLAN: Follow-up with primary care provider within the next 7 days Remain compliant with treatment plan and medications Return to the ER if you experience any problems DISPOSITION: Home, Self-Care. DISCHARGE CONDITION: [Stable]. TIME SPENT ON DISCHARGE: 35 minutes. Vital Signs/I&Os Vital Signs Date Time Temp Pulse Resp B/P (MAP) Pulse Ox O2 Delivery O2 Flow Rate FiO2 04/25/21 07:00 95 Room Air 04/25/21 05:19 96.1 73 16 110/70 (83) 04/24/21 06:30 2.0 I&O- Last 24 Hours up to 6 AM 04/25/21 06:00 Intake Total 1880 ml Output Total 500 ml Balance 1380 ml Laboratory Data Labs 24H Laboratory Tests 2 04/24/21 13:42: Anion Gap 6L, Glomerular Filtration Rate > 60.0, Calcium Level 8.6, Magnesium Level 2.6H 04/25/21 07:05: Prothrombin Time 13.4, Prothromb Time International Ratio 0.98, Activated Part ial Thromboplast Time 33.3, Fibrinogen 455H, Ferritin 154, Total Bilirubin 0.4#, Direct Bilirubin 0.2, Aspartate Amino Transf (AST/SGOT) 45H, Alanine Aminotransferase (ALT/SGPT) 28, Alkaline Phosphatase 67, Lactate Dehydrogenase 310H, Total Creatine Kinase 112, Troponin I < 0.02, [id number]-Type Natriuretic Peptide 175H, Total Protein 6.6, Albumin 2.7L, Albumin/Globulin Ratio 0.7L, Procalcitonin <0.05 CBC/BMP Laboratory Tests 04/24/21 13:42 Microbiology Microbiology 04/24/21 Blood Culture - Preliminary, Resulted No growth after 24 hours . All specim... 04/23/21 Respiratory Virus Panel (PCR) ([facility]) - Final, Complete SARS-CoV-2 (COVID 19) 04/23/21 Blood Culture - Preliminary, Resulted No growth after 24 hours . All specim... Discharge Medications Scheduled Ascorbic Acid (Vitamin C) 500 Mg Capsule, 500 MG PO DAILY, (Reported) Cyclobenzaprine HCl (Cyclobenzaprine HCl) 10 Mg Tablet, 10 MG PO DAILY, (Reported) Docusate Sodium (Docusate Sodium) 100 Mg Capsule, 100 MG PO BID, (Reported) Ferrous Sulfate (Ferrous Sulfate) 325 Mg Tablet.dr, 65 MG PO DAILY, (Reported) Levothyroxine Sodium (Levothyroxine Sodium) 50 Mcg Tablet, 50 MCG PO DAILY, (Reported) Lisdexamfetamine Dimesylate (Vyvanse) 70 Mg Capsule, 70 MG PO QAM, (Reported) Magnesium Oxide (Magnesium Oxide) 400 Mg Tablet, 400 MG PO DAILY, (Reported) Metformin HCl (Metformin HCl) 500 Mg Tablet, 500 MG PO BID, (Reported) Prednisone (Prednisone) 10 Mg Tablet, 10 MG PO TAPER Take 4 tabs daily x 3 days, then 3 tabs daily x 3 days, then 2 tabs daily x 3 days, then 1 tab daily x 3 days and stop Zolpidem Tartrate (Ambien) 10 Mg Tablet, 10 MG PO QHS, (Reported) Scheduled PRN Hydroxyzine HCl (Hydroxyzine HCl) 25 Mg Tablet, 25 MG PO TID PRN for ANXIETY, (Reported) Allergies Coded Allergies: No Known Allergies (Unverified , 12/08/18) RENETTA HAHN MD Apr 25, 2021 12:33
== END 2021-04-25 09:58 | disposition home or self-care (01) | DRG 179 ==
LOC: M ED 18:01 → M ED INP 23:48 → ENRESERV 04-24 05:25 → M 4MAIN 04-24 06:40
PROVIDERS: ADMIT Internal Medicine; ATTEND Internal Medicine
PROC: XW033E5 Introduction of Remdesivir Anti-infective into Peripheral Vein, Percutaneous Approach, New Technology Group 5 (ICD-10-PCS; principal; 2021-04-23)
PROC: 3E0333Z Introduction of Anti-inflammatory into Peripheral Vein, Percutaneous Approach (ICD-10-PCS; 2021-04-23)
DX: U07.1 COVID-19 (principal); M79.7 Fibromyalgia; E28.2 Polycystic ovarian syndrome; F90.9 Attention-deficit hyperactivity disorder, unspecified type; F41.9 Anxiety disorder, unspecified; E03.9 Hypothyroidism, unspecified; E66.9 Obesity, unspecified; D50.9 Iron deficiency anemia, unspecified; Z98.84 Bariatric surgery status; Z79.84 Long term (current) use of oral hypoglycemic drugs; Z79.899 Other long term (current) drug therapy; Z68.31 Body mass index [BMI] 31.0-31.9, adult

== ENCOUNTER 2023-06-20 10:16 | Outpatient (CLI) | payer OTHER ==
[~2023-06-20] VITALS: Ht 167.6 cm; Wt 95.5 kg
[~2023-06-20 10:16] MED LIST changes: +ALBUTEROL SULFATE 2.5MG/0.5ML INH NEB SOLN INH PRN; +AMBI10TA PO; +CYCL-707 PO; +EPINEPHrine INJ 1 MG/ML 1ML AMP IM PRN; +HYDR-4570 PO; +IBUP80TA; +MAGN400T33 PO; +METF500T13 PO; +PRED10TA2 PO; +diphenhydrAMINE 50MG/ML VIAL IV PRN; +methylPREDNISolone 125MG 2ML VIAL IV PRN
[2023-06-20] MEDS ORDERED: diphenhydrAMINE 25MG CAP PO ONE (10:30)
[2023-06-20] MEDS ORDERED: ACETAMINOPHEN TAB 650MG DOSE (2X325MG) PO ONE (10:30)
[2023-06-20] MEDS ORDERED: NS 1,000 ML IV SCH (10:30)
[2023-06-20] MEDS ORDERED: FERRIC CARBOXYMALTOSE INJ 750 MG in NS 250 ML (>50kg) IV ONE ×3 (10:30)
[2023-06-20 10:42] VITALS: BP 130/78; O2SAT 100
== END 2023-06-20 12:25 | disposition home or self-care (01) ==
LOC: M INFU 10:16
PROVIDERS: ATTEND Internal Medicine
DX: D50.9 Iron deficiency anemia, unspecified (principal)
CPT/HCPCS: 96365; 96366; J1439

== ENCOUNTER 2023-07-10 08:05 | Outpatient (CLI) | payer OTHER ==
[2023-07-10 08:05] VITALS: BP 132/83; O2SAT 100
[~2023-07-10 08:05] MED LIST changes: +ACETAMINOPHEN TAB 650MG DOSE (2X325MG) PO ONE; +FERRIC CARBOXYMALTOSE INJ 750 MG in NS 250 ML (>50kg) IV ONE; +NS 1,000 ML IV SCH; +diphenhydrAMINE 25MG CAP PO ONE
[2023-07-10 09:15] VITALS: BP 141/84; O2SAT 100
== END 2023-07-10 09:50 ==
LOC: M INFU 08:05
PROVIDERS: ATTEND Internal Medicine
DX: D50.9 Iron deficiency anemia, unspecified (principal)
CPT/HCPCS: 96365; J1439

== ENCOUNTER 2024-04-08 22:55 | Emergency (ER) | payer OTHER ==
[~2024-04-08] VITALS: Ht 167.6 cm; Wt 90.8 kg
[~2024-04-08 22:55] MED LIST changes: -ACETAMINOPHEN TAB 650MG DOSE (2X325MG) PO ONE; -ALBUTEROL SULFATE 2.5MG/0.5ML INH NEB SOLN INH PRN; -EPINEPHrine INJ 1 MG/ML 1ML AMP IM PRN; -FERRIC CARBOXYMALTOSE INJ 750 MG in NS 250 ML (>50kg) IV ONE; -NS 1,000 ML IV SCH; +ONDA-282 PO; -ONDA4TAB6 PO; -diphenhydrAMINE 25MG CAP PO ONE; -diphenhydrAMINE 50MG/ML VIAL IV PRN; -methylPREDNISolone 125MG 2ML VIAL IV PRN
[2024-04-08 22:57] VITALS: TEMP 97.3
[2024-04-09 01:48] LABS: BASO # 0.1 10^3/uL (0.0-0.2); EOS # 0.1 10^3/uL (0.0-0.5); EOS % 2.4 % (0.0-3.0); LYMPH % 20.3 % (24.0-44.0); MEAN CORPUSCULAR HEMOGLOBIN 24.4 pg (27.0-33.0); MEAN CORPUSCULAR HGB CONC 31.8 g/dl (32.0-36.5); MEAN CORPUSCULAR VOLUME 76.8 fl (80.0-96.0); MONO # 0.3 10^3/uL (0.0-0.8); MONO % 6.9 % (2.0-8.0); NEUTROPHILS # 3.4 10^3/uL (1.5-8.5); PLATELET COUNT, AUTOMATED 191 10^3/uL (150-450); RED BLOOD COUNT 5.73 10^6/uL (4.00-5.40); WHITE BLOOD COUNT 4.9 10^3/uL (4.0-10.0)
[2024-04-09] MEDS ORDERED: ISOVUE-370 76% 100ML VIAL As Ordered ONE (02:22)
[2024-04-09 02:28] LABS: BLOOD UREA NITROGEN 11 MG/DL (9-23); CALCIUM LEVEL 9.8 MG/DL (8.5-10.1); CARBON DIOXIDE LEVEL 26 MMOL/L (20-31); CHLORIDE LEVEL 105 MMOL/L (98-107); CK-MB VALUE MASS < 1.0 NG/ML (<3.6); CREATININE FOR GFR 0.63 MG/DL (0.55-1.30); GLOMERULAR FILTRATION RATE > 60.0 (>58); GLUCOSE, FASTING 85 MG/DL (60-100); POTASSIUM SERUM 3.7 MMOL/L (3.5-5.1); SODIUM LEVEL 139 MMOL/L (136-145)
[2024-04-09 02:29] LABS: THYROID STIMULATING HORMONE 1.318 uIU/ML (0.55-4.78)
[2024-04-09 02:30] LABS: FREE T4 1.42 NG/DL (0.89-1.76)
[2024-04-09 03:10] LABS: CPK CREATINE PHOSPHOKINASE 110 U/L (34-145)
[2024-04-09 04:30] VITALS: BP 107/68; O2SAT 98
[2024-04-09] MEDS ORDERED: HOLTER MONITOR XX (04:30)
== END 2024-04-09 04:57 | disposition home or self-care (01) ==
LOC: M ED 22:55
DX: R55 Syncope and collapse (principal); S50.01XA Contusion of right elbow, initial encounter; I45.10 Unspecified right bundle-branch block; E11.9 Type 2 diabetes mellitus without complications; M79.7 Fibromyalgia; F90.9 Attention-deficit hyperactivity disorder, unspecified type; F41.9 Anxiety disorder, unspecified; E03.9 Hypothyroidism, unspecified; Z98.84 Bariatric surgery status; Z79.84 Long term (current) use of oral hypoglycemic drugs; Z79.899 Other long term (current) drug therapy; Y93.89 Activity, other specified; Y99.9 Unspecified external cause status; Y92.9 Unspecified place or not applicable
CPT/HCPCS: 36415; 70450; 71275; 72125; 73030; 73080; 80048; 82550; 82553; 84439; 84443; 84484; 85025; 87486; 87581; 87633; 87798; 93005; 93041; 94760; 99285; Q9967

== ENCOUNTER 2024-09-18 10:11 | Outpatient (CLI) | payer OTHER ==
[~2024-09-18] VITALS: Ht 167.6 cm; Wt 80.9 kg
[~2024-09-18 10:11] MED LIST changes: +ALBUTEROL SULFATE 2.5MG/0.5ML INH CONCENTRATE NEB SOLN INH PRN; -CYCL5TAB PO; +CYCL5TAB4 PO; +EPINEPHrine INJ 1 MG/ML 1ML AMP IM PRN; +HOLTER MONITOR XX; +diphenhydrAMINE 50MG/ML VIAL IV PRN; +methylPREDNISolone 125MG 2ML VIAL IV PRN
[2024-09-18 10:20] VITALS: BP 135/81; O2SAT 100
[2024-09-18] MEDS: FERRIC CARBOXYMALTOSE 750 MG (VIAL MATE) IN 100ML NS IV ONE (10:32)
[2024-09-18 11:09] VITALS: BP 125/85; O2SAT 100
== END 2024-09-18 11:15 | disposition home or self-care (01) ==
LOC: M INFU 10:11
PROVIDERS: ATTEND Internal Medicine
DX: D50.9 Iron deficiency anemia, unspecified (principal)
CPT/HCPCS: 96365; J1439

== ENCOUNTER 2024-10-16 12:40 | Outpatient (CLI) | payer OTHER ==
[~2024-10-16] VITALS: Ht 167.6 cm; Wt 78.2 kg
[2024-10-16 12:40] VITALS: BP 118/78; O2SAT 98
[~2024-10-16 12:40] MED LIST changes: -AMBI10TA PO; -AMBI5TAB PO; -FLOM0.4C39 PO; +TAMS-18 PO; +ZOLP-532 PO; +ZOLP-533 PO
[2024-10-16] MEDS: FERRIC CARBOXYMALTOSE 750 MG (VIAL MATE) IN 100ML NS IV ONE (12:51)
[2024-10-16 13:10] VITALS: BP 127/76; O2SAT 95
== END 2024-10-16 13:10 ==
LOC: M INFU 12:40
PROVIDERS: ATTEND Internal Medicine
DX: D50.9 Iron deficiency anemia, unspecified (principal)
CPT/HCPCS: 96374; J1439

== ENCOUNTER → 2024-12-11 | Outpatient (CLI) | payer OTHER ==
[~2024-12-11] MED LIST changes: -ALBUTEROL SULFATE 2.5MG/0.5ML INH CONCENTRATE NEB SOLN INH PRN; -EPINEPHrine INJ 1 MG/ML 1ML AMP IM PRN; +HYDR-3364 PO; -HYDR-4570 PO; +VYVA60CA PO; -diphenhydrAMINE 50MG/ML VIAL IV PRN; -methylPREDNISolone 125MG 2ML VIAL IV PRN
[2024-12-11 17:58] LABS: PLATELET COUNT, AUTOMATED 181 10^3/uL (150-450)
[2024-12-11 18:08] LABS: ALT/SGPT 13 U/L (7.0-40); AST/SGOT 19 U/L (<34); CALCIUM LEVEL 9.8 MG/DL (8.5-10.1); CARBON DIOXIDE LEVEL 28 MMOL/L (20-31); CHLORIDE LEVEL 104 MMOL/L (98-107); CREATININE FOR GFR 0.61 MG/DL (0.55-1.30); GLOMERULAR FILTRATION RATE > 90.0 (>58); POTASSIUM SERUM 4.1 MMOL/L (3.5-5.1); SODIUM LEVEL 143 MMOL/L (136-145)
== END ==
LOC: M WUC 15:50
PROVIDERS: ATTEND Urology
DX: N39.3 Stress incontinence (female) (male) (principal)

== ENCOUNTER 2024-12-16 13:51 | Day surgery (SDC) | payer OTHER, MEDICAID ==
[~2024-12-16] VITALS: Ht 167.6 cm; Wt 71.7 kg
[2024-12-16] MEDS ORDERED: LR 1,000 ML IV SCH (14:10)
[2024-12-16] MEDS: SCOPOLAMINE 1MG TRANSDERMAL PATCH TOP ONE (14:51)
[2024-12-16] MEDS ORDERED: LIDOCAINE 2% 100 MG/5 ML SDV (FOR ANES.) As Ordered ONE (15:05)
[2024-12-16] MEDS ORDERED: GLYCOPYRROLATE INJ 0.2 MG/ML 2 ML VIAL As Ordered ONE (15:06)
[2024-12-16] MEDS ORDERED: KETOROLAC 30 MG/ML 1 ML VIAL As Ordered ONE (15:06)
[2024-12-16] MEDS ORDERED: ONDANSETRON 4MG 2ML VIAL As Ordered ONE (15:06)
[2024-12-16] MEDS ORDERED: dexAMETHasone 4 MG/ML 1 ML VIAL As Ordered ONE (15:06)
[2024-12-16] MEDS ORDERED: MIDAZOLAM INJ 2 MG/2 ML VIAL As Ordered ONE (15:07)
[2024-12-16] MEDS: ceFAZolin SOD 2 GM IV ONCE IV ONE (15:18)
[2024-12-16] MEDS ORDERED: PHENYLephrine 500MCG 5ML (100MCG/ML) SYRINGE As Ordered ONE (15:28)
[2024-12-16] MEDS ORDERED: ACETAMINOPHEN 1000MG/100ML IV BAG As Ordered ONE (15:28)
[2024-12-16] MEDS: LIDOCAINE 2% 5 ML JELLY UROJET As Ordered ONE (15:32)
[2024-12-16] MEDS ORDERED: ONDANSETRON 4MG 2ML VIAL IV PRN (15:55)
[2024-12-16] MEDS: LR 500 ML IV ONE (16:05)
[2024-12-16 16:40] VITALS: BP 89/58; TEMP 96.8; O2SAT 100
== END 2024-12-16 17:01 | disposition home or self-care (01) ==
LOC: M SDC 13:51
PROVIDERS: ATTEND Urology
DX: N39.3 Stress incontinence (female) (male) (principal); E03.9 Hypothyroidism, unspecified; Z79.899 Other long term (current) drug therapy
CPT/HCPCS: 36415; 51715; 84702; A4215; A4649; J0131; J0690; J1100; J1596; J1885; J2250; J2371; J2405; J3010; L8606

== ENCOUNTER 2025-04-11 19:59 | Emergency (ER) | payer OTHER, MEDICAID ==
[~2025-04-11] VITALS: Ht 167.6 cm; Wt 77.9 kg
[2025-04-11 20:02] VITALS: BP 122/71; TEMP 98.1; O2SAT 97
== END 2025-04-11 21:48 | disposition left against medical advice (07) ==
LOC: M ED 19:59
DX: Z53.21 Procedure and treatment not carried out due to patient leaving prior to being seen by health care provider (principal)